=== PATIENT | female | born 1955 | race Caucasian/White ===

== ENCOUNTER → 2020-08-14 | Outpatient (CLI) | payer OTHER, SELFPAY ==
--- NOTE | 2020-08-14 16:30 | LES_PTH ---
PATIENT: MARIAM BRAMBILA LOC: [place] U#:[id number] AGE/SX: 64/F ROOM: RE08/14/[address]: Dr. Daryl Plata MD : [id number] BED: DIS: 08/14/2020 SPEC #: [id number] RECD: 08/14/20 17:44 STATUS: STEFANIE REYNALDO #: [id number] GERARD: 08/14/20 16:[address]: Daryl Plata DEPT: SURGICAL PATHOLOGY RECD BY: Thais Leroy Tissues: Skin of eyelid, NOS Procedures: Surgery Specimen Level IV HEADER OPERATION: Left lower eyelid lesion excision PRE-OP DIAGNOSIS: Left lower eyelid lesion TISSUE SUBMITTED: Left lower eyelid lesion MICROSCOPIC DIAGNOSIS Left lower eyelid lesion, excision: Squamous papilloma. [place]:anita 08/16/20 MICROSCOPIC DESCRIPTION Slides are reviewed. GROSS DESCRIPTION Received in fixative is one container labeled with the patient's name and designated left lower lid. The specimen consists of a piece of britt-white skin measuring 0.3 x 0.3 x 0.1 cm. The specimen is totally submitted in one cassette. / SJ:rg 08/15/20 TC:1 CPT: 78894
== END | disposition home or self-care (01) ==
PROVIDERS: Referring Provider Ophthalmology; Visit Provider Ophthalmology
DX: H02.9 Unspecified disorder of eyelid (principal)
CPT/HCPCS: 88305

== ENCOUNTER 2022-01-17 15:44 | Outpatient (CLI) | payer OTHER, SELFPAY ==
[2022-01-17 17:49] LABS: Absolute Lymphocyte Count 1.88 X10^3/uL (0.83-4.51); Absolute Neutrophil Count 5.2 X10^3/uL (2.0-7.7); Basophil# 0.03 X10^3/uL; Basophil% 0.4 % (0-1); Eosinophil# 0.08 X10^3/uL; Hematocrit 43.9 % (37-47); Hemoglobin 14.5 g/dL (12.0-15.0); Lymphocyte # 1.88 X10^3/ul (0.83-4.51); Lymphocyte % 23.9 % (19-41); Mean Corpuscular Hgb 30.3 pg (27.0-32.0); Mean Corpuscular Volume 91.6 fL (81-99); Mean Platelet Vol. 10.5 fl (6.2-12.0); Monocyte# 0.68 X10^3/uL; Monocyte% 8.6 % (0-10); NRBC Flagged by Analyzer 0 % (0-5); Neutrophil # 5.16 X10^3/uL (2.7-7.7); Neutrophil % 65.6 % (47-70); Platelet Count 263 K/mm3 (150-450); RBC Distribution Width CV 14.1 % (11.6-14.6); RBC Distribution Width SD 47.8 fl (35.1-43.9); Red Blood Count 4.79 M/mm3 (4.2-5.4); White Blood Count 7.9 K/mm3 (4.4-11.0)
[2022-01-17 18:06] LABS: Erythrocyte Sedimentation Rate 16 mm/hr (0-30)
[2022-01-17 18:51] LABS: Vitamin B12 331 pg/mL (211-911); Vitamin D,25 Hydroxy 14.1 ng/mL
[2022-01-17 19:07] LABS: AST(SGOT) 23 U/L (15-37); Alanine Aminotransfer ALT/SGPT 37 U/L (13-56); Albumin, Serum 3.9 g/dL (3.2-5.0); Alkaline Phosphatase 88 U/L (45-117); Anion Gap 7 (5-15); BUN 14 mg/dL (7-18); BUN/Creat Ratio 16.6 RATIO (10-20); CRP 4.91 mg/L (0.0-3.0); Calcium,Total 8.7 mg/dL (8.5-10.1); Chloride 104 mmol/L (98-107); Cholesterol 187 mg/dL (200); Creatinine, Serum 0.84 mg/dL (0.55-1.02); EST Glomerular Filtration Rate 72 mL/min (>60); Est Glom Filt Rate - Afr Amer 87 mL/min (>60); Globulin 3.9 g/dL (2.2-4.2); Glucose 109 mg/dL (74-106); High Density Lipoprotein 57 mg/dL; Potassium 3.4 mmol/L (3.5-5.1); Protein, Total 7.8 g/dL (6.4-8.2); Sodium Level 137 mmol/L (136-145); T4 Free Direct 1.01 ng/dL (0.76-1.46); Thyroid Stim Hormone (TSH) 1.47 uIU/mL (0.358-3.74); Triglycerides 70 mg/dL; Very Low Density Lipoprotein 14 mg/dL (5-40)
[2022-01-28 12:05] LABS: Anti-Thyroglobulin AB 3.6 IU/mL (0.0-0.9); Thyroglobulin RIA 8.8 ng/mL (.); Thyroid Peroxidase AB 14 IU/mL (0-34)
== END 2022-01-17 23:59 | disposition home or self-care (01) ==
LOC: MFPLAB 15:45
PROVIDERS: PCP Family Medicine; Referring Provider Family Medicine; Visit Provider Family Medicine
DX: R73.09 Other abnormal glucose (principal); E03.9 Hypothyroidism, unspecified; M79.7 Fibromyalgia; I10 Essential (primary) hypertension; R53.83 Other fatigue; E55.9 Vitamin D deficiency, unspecified
CPT/HCPCS: 80053; 80061; 82306; 82607; 83036; 84432; 84439; 84443; 85025; 85652; 86140; 86376; 86800

== ENCOUNTER 2022-01-25 11:18 | Outpatient (CLI) | payer OTHER, SELFPAY ==
--- NOTE | 2022-01-25 11:21 | US_ITS ---
STUDY: THYROID ULTRASOUND REASON FOR EXAM: Female, 66 years old. THYROMEGALY TECHNIQUE: Ultrasound evaluation of the thyroid was performed with real-time and static vail-scale imaging. COMPARISON: None. FINDINGS: RIGHT LOBE: The right lobe of the thyroid gland measures 5.6 x 1.9 cm. There is a homogeneous echotexture. There are no demonstrated solid, cystic or complex lesions. LEFT LOBE: The left lobe of the thyroid gland measures 4.2 x 2.0 cm. There is a homogeneous echotexture. There are no demonstrated solid, cystic or complex lesions. ISTHMUS: The isthmus measures 2 mm. US/Thyroid IMPRESSION: There are no acute findings on this ultrasound examination of the thyroid. Electronically Signed: Zheng Nazario MD at 21:37 EST ,
== END 2022-01-25 23:59 | disposition home or self-care (01) ==
LOC: US 11:19
PROVIDERS: PCP Family Medicine; Referring Provider Family Medicine; Visit Provider Family Medicine
DX: E01.0 Iodine-deficiency related diffuse (endemic) goiter (principal)
CPT/HCPCS: 76536

== ENCOUNTER 2022-02-12 15:39 | Outpatient (CLI) | payer OTHER, SELFPAY ==
[2022-02-12 17:41] LABS: Potassium 3.7 mmol/L (3.5-5.1)
== END 2022-02-12 23:59 | disposition home or self-care (01) ==
LOC: MFPLAB 15:42
PROVIDERS: PCP Family Medicine; Referring Provider Family Medicine; Visit Provider Family Medicine
DX: I10 Essential (primary) hypertension (principal)
CPT/HCPCS: 36415; 84132

== ENCOUNTER → 2022-05-10 | Outpatient (CLI) | payer OTHER, SELFPAY ==
[2022-05-10 17:38] LABS: Absolute Lymphocyte Count 2.01 X10^3/uL (0.83-4.51); Absolute Neutrophil Count 4.3 X10^3/uL (2.0-7.7); Basophil# 0.04 X10^3/uL; Basophil% 0.6 % (0-1); Eosinophil# 0.25 X10^3/uL; Eosinophils% 3.4 % (0-5); Hematocrit 42.3 % (37-47); Hemoglobin 13.4 g/dL (12.0-15.0); Lymphocyte # 2.01 X10^3/ul (0.83-4.51); Lymphocyte % 27.7 % (19-41); Mean Corp Hgb Conc 31.7 g/dL (32-36); Mean Corpuscular Hgb 28.9 pg (27.0-32.0); Mean Corpuscular Volume 91.2 fL (81-99); Mean Platelet Vol. 11.2 fl (6.2-12.0); Monocyte# 0.66 X10^3/uL; Monocyte% 9.1 % (0-10); NRBC Flagged by Analyzer 0 % (0-5); Neutrophil # 4.27 X10^3/uL (2.7-7.7); Neutrophil % 58.9 % (47-70); Platelet Count 222 K/mm3 (150-450); RBC Distribution Width CV 14.3 % (11.6-14.6); Red Blood Count 4.64 M/mm3 (4.2-5.4); White Blood Count 7.3 K/mm3 (4.4-11.0)
[2022-05-10 18:08] LABS: Vitamin D,25 Hydroxy 61.9 ng/mL
[2022-05-10 18:23] LABS: ALB/GLOB Ratio 1.2 RATIO (0.9-2.4); AST(SGOT) 19 U/L (15-37); Alanine Aminotransfer ALT/SGPT 30 U/L (13-56); Albumin, Serum 3.9 g/dL (3.2-5.0); Alkaline Phosphatase 81 U/L (45-117); Anion Gap 6 (5-15); BUN 15 mg/dL (7-18); BUN/Creat Ratio 21.8 RATIO (10-20); Calcium,Total 8.8 mg/dL (8.5-10.1); Chloride 106 mmol/L (98-107); Creatinine, Serum 0.69 mg/dL (0.55-1.02); EST Glomerular Filtration Rate 91 mL/min (>60); Est Glom Filt Rate - Afr Amer 110 mL/min (>60); Globulin 3.2 g/dL (2.2-4.2); Glucose 97 mg/dL (74-106); Potassium 3.5 mmol/L (3.5-5.1); Protein, Total 7.1 g/dL (6.4-8.2); Sodium Level 139 mmol/L (136-145); T4 Free Direct 1.25 ng/dL (0.76-1.46); Thyroid Stim Hormone (TSH) 0.16 uIU/mL (0.358-3.74)
[2022-05-10 18:52] LABS: Hemoglobin A1c 5.9 % (3.8-5.6)
== END | disposition home or self-care (01) ==
LOC: MFPLAB 14:14
PROVIDERS: PCP Family Medicine; Referring Provider Family Medicine; Visit Provider Family Medicine
DX: I10 Essential (primary) hypertension (principal); R73.09 Other abnormal glucose; E03.9 Hypothyroidism, unspecified; E55.9 Vitamin D deficiency, unspecified
CPT/HCPCS: 36415; 80053; 82306; 83036; 84439; 84443; 85025

== ENCOUNTER → 2022-09-23 | Outpatient (CLI) | payer OTHER, SELFPAY ==
[2022-09-23 11:13] LABS: Bacteria 0 SEEN /hpf (None Seen); Mucous, Urine 0 SEEN /hpf (<or=2+); Red Blood Cells-Urine 0 SEEN /hpf (0-5); Squamous Epithelial Cells - UA 0 SEEN /hpf (5-10); White Blood Cells 0 SEEN /hpf (0-5)
[2022-09-23 12:10] LABS: Color, Urine Yellow (Yellow); Glucose, Dipstick Normal (Normal); Ketone-Dipstick 5 mg/dl (Negative); Leukocyte Esterase-Dipstick Negative /ul (Negative); Nitrite-Dipstick Negative (Negative); Occult Blood-Urine Negative /ul (Negative); Protein-Dipstick Negative (Negative); Specific Gravity, Urine 1.025 (1.002-1.030); Urine Bilirubin Dipstick Negative (Negative); Urine Clarity Clear (Clear); Urine Urobilinogen Normal (Normal)
[2022-09-23 12:22] LABS: Vitamin D,25 Hydroxy 68.6 ng/mL
[2022-09-23 12:24] LABS: Hemoglobin A1c 5.7 % (3.8-5.6)
[2022-09-23 12:34] LABS: ALB/GLOB Ratio 1.1 RATIO (0.9-2.4); AST(SGOT) 13 U/L (15-37); Alanine Aminotransfer ALT/SGPT 21 U/L (13-56); Albumin, Serum 3.7 g/dL (3.2-5.0); Alkaline Phosphatase 80 U/L (45-117); Anion Gap 5 (5-15); BUN 14 mg/dL (7-18); BUN/Creat Ratio 18.4 RATIO (10-20); Calcium,Total 9.1 mg/dL (8.5-10.1); Chloride 104 mmol/L (98-107); Creatinine, Serum 0.76 mg/dL (0.55-1.02); EST Glomerular Filtration Rate 80 mL/min (>60); Est Glom Filt Rate - Afr Amer 97 mL/min (>60); Globulin 3.4 g/dL (2.2-4.2); Glucose 95 mg/dL (74-106); Protein, Total 7.1 g/dL (6.4-8.2); Sodium Level 138 mmol/L (136-145)
[2022-09-23 12:35] LABS: Absolute Lymphocyte Count 1.38 X10^3/uL (0.83-4.51); Absolute Neutrophil Count 3.8 X10^3/uL (2.0-7.7); Basophil# 0.03 X10^3/uL; Basophil% 0.5 % (0-1); Eosinophil# 0.08 X10^3/uL; Eosinophils% 1.4 % (0-5); Hematocrit 42.9 % (37-47); Hemoglobin 14.1 g/dL (12.0-15.0); Lymphocyte # 1.38 X10^3/ul (0.83-4.51); Lymphocyte % 23.6 % (19-41); Mean Corp Hgb Conc 32.9 g/dL (32-36); Mean Corpuscular Hgb 29.9 pg (27.0-32.0); Mean Corpuscular Volume 91.1 fL (81-99); Mean Platelet Vol. 10.3 fl (6.2-12.0); Monocyte# 0.54 X10^3/uL; Monocyte% 9.2 % (0-10); NRBC Flagged by Analyzer 0 % (0-5); Neutrophil % 65.1 % (47-70); Platelet Count 210 K/mm3 (150-450); RBC Distribution Width SD 46.9 fl (35.1-43.9); Red Blood Count 4.71 M/mm3 (4.2-5.4); White Blood Count 5.8 K/mm3 (4.4-11.0)
[2022-09-24 11:00] LABS: Free T3 2.4 pg/mL (2.18-3.98)
== END | disposition home or self-care (01) ==
LOC: MFPLAB 10:03
PROVIDERS: PCP Family Medicine; Visit Provider Family Medicine
DX: E03.9 Hypothyroidism, unspecified (principal); I10 Essential (primary) hypertension; R73.02 Impaired glucose tolerance (oral); E55.9 Vitamin D deficiency, unspecified
CPT/HCPCS: 36415; 80053; 81001; 82306; 83036; 84439; 84443; 84481; 85025

== ENCOUNTER → 2022-12-17 | Outpatient (CLI) | payer OTHER, SELFPAY ==
[2022-12-17 15:28] LABS: Absolute Lymphocyte Count 2.23 X10^3/uL (0.83-4.51); Absolute Neutrophil Count 4.5 X10^3/uL (2.0-7.7); Basophil# 0.04 X10^3/uL; Basophil% 0.5 % (0-1); Eosinophil# 0.18 X10^3/uL; Eosinophils% 2.3 % (0-5); Hematocrit 44.1 % (37-47); Hemoglobin 13.6 g/dL (12.0-15.0); Lymphocyte # 2.23 X10^3/ul (0.83-4.51); Lymphocyte % 29.1 % (19-41); Mean Corp Hgb Conc 30.8 g/dL (32-36); Mean Corpuscular Hgb 28.3 pg (27.0-32.0); Mean Corpuscular Volume 91.7 fL (81-99); Monocyte# 0.69 X10^3/uL; NRBC Flagged by Analyzer 0 % (0-5); Neutrophil # 4.49 X10^3/uL (2.7-7.7); Neutrophil % 58.7 % (47-70); Platelet Count 258 K/mm3 (150-450); RBC Distribution Width CV 14.3 % (11.6-14.6); RBC Distribution Width SD 48.7 fl (35.1-43.9); Red Blood Count 4.81 M/mm3 (4.2-5.4); White Blood Count 7.7 K/mm3 (4.4-11.0)
[2022-12-17 15:34] LABS: Hemoglobin A1c 5.1 % (3.8-5.6)
[2022-12-17 15:48] LABS: ALB/GLOB Ratio 1.1 RATIO (0.9-2.4); AST(SGOT) 26 U/L (15-37); Alanine Aminotransfer ALT/SGPT 27 U/L (13-56); Albumin, Serum 3.9 g/dL (3.2-5.0); Alkaline Phosphatase 87 U/L (45-117); Anion Gap 6 (5-15); BUN 16 mg/dL (7-18); BUN/Creat Ratio 21.1 RATIO (10-20); Calcium,Total 9.2 mg/dL (8.5-10.1); Chloride 105 mmol/L (98-107); Cholesterol 208 mg/dL (200); Creatinine, Serum 0.76 mg/dL (0.55-1.02); EST Glomerular Filtration Rate 81 mL/min (>60); Est Glom Filt Rate - Afr Amer 98 mL/min (>60); Globulin 3.7 g/dL (2.2-4.2); Glucose 90 mg/dL (74-106); High Density Lipoprotein 72 mg/dL; Potassium 3.6 mmol/L (3.5-5.1); Protein, Total 7.6 g/dL (6.4-8.2); Sodium Level 139 mmol/L (136-145); T4 Free Direct 1.13 ng/dL (0.76-1.46); Thyroid Stim Hormone (TSH) 0.68 uIU/mL (0.358-3.74); Triglycerides 52 mg/dL; Very Low Density Lipoprotein 10 mg/dL (5-40)
[2022-12-17 16:00] LABS: Vitamin D,25 Hydroxy 72.2 ng/mL
== END | disposition home or self-care (01) ==
PROVIDERS: PCP Family Medicine; Referring Provider Family Medicine; Visit Provider Family Medicine
DX: I10 Essential (primary) hypertension (principal); R73.02 Impaired glucose tolerance (oral); E03.9 Hypothyroidism, unspecified; E55.9 Vitamin D deficiency, unspecified
CPT/HCPCS: 36415; 80053; 80061; 82306; 83036; 84439; 84443; 85025

== ENCOUNTER → 2023-01-01 | Outpatient (CLI) | payer OTHER, SELFPAY ==
[2023-01-01 09:22] LABS: Erythrocyte Sedimentation Rate 7 mm/hr (0-30)
[2023-01-01 09:25] LABS: Absolute Lymphocyte Count 1.85 X10^3/uL (0.83-4.51); Absolute Neutrophil Count 3.8 X10^3/uL (2.0-7.7); Basophil# 0.06 X10^3/uL; Basophil% 0.9 % (0-1); Eosinophil# 0.25 X10^3/uL; Eosinophils% 3.8 % (0-5); Hematocrit 44.6 % (37-47); Hemoglobin 13.6 g/dL (12.0-15.0); Lymphocyte # 1.85 X10^3/ul (0.83-4.51); Lymphocyte % 28.2 % (19-41); Mean Corp Hgb Conc 30.5 g/dL (32-36); Mean Corpuscular Hgb 27.9 pg (27.0-32.0); Mean Corpuscular Volume 91.4 fL (81-99); Mean Platelet Vol. 10.1 fl (6.2-12.0); Monocyte% 9.1 % (0-10); NRBC Flagged by Analyzer 0 % (0-5); Neutrophil # 3.78 X10^3/uL (2.7-7.7); Neutrophil % 57.5 % (47-70); Platelet Count 254 K/mm3 (150-450); RBC Distribution Width CV 14.5 % (11.6-14.6); RBC Distribution Width SD 48.7 fl (35.1-43.9); Red Blood Count 4.88 M/mm3 (4.2-5.4); White Blood Count 6.6 K/mm3 (4.4-11.0)
[2023-01-01 09:53] LABS: ALB/GLOB Ratio 1.1 RATIO (0.9-2.4); AST(SGOT) 15 U/L (15-37); Alanine Aminotransfer ALT/SGPT 23 U/L (13-56); Albumin, Serum 3.9 g/dL (3.2-5.0); Alkaline Phosphatase 89 U/L (45-117); Anion Gap 5 (5-15); BUN 15 mg/dL (7-18); BUN/Creat Ratio 20.1 RATIO (10-20); CRP < 2.90 mg/L (0.0-3.0); Calcium,Total 9.2 mg/dL (8.5-10.1); Chloride 105 mmol/L (98-107); Creatinine, Serum 0.75 mg/dL (0.55-1.02); EST Glomerular Filtration Rate 82 mL/min (>60); Est Glom Filt Rate - Afr Amer 99 mL/min (>60); Globulin 3.6 g/dL (2.2-4.2); Glucose 121 mg/dL (74-106); LDH 226 U/L (84-246); Potassium 4.5 mmol/L (3.5-5.1); Protein, Total 7.5 g/dL (6.4-8.2); Sodium Level 140 mmol/L (136-145)
[2023-01-02 14:09] LABS: Endomysial Antibody IgA Negative (Negative)
[2023-01-02 17:24] LABS: Immunoglobulin A 133 mg/dL (87-352); t-Transglutaminase IgA <2 U/mL (0-3)
[2023-01-07 15:08] LABS: Anti-Centromere B Ab <0.2 AI (0.0-0.9); Anti-Chromatin <0.2 AI (0.0-0.9); Anti-Jo <0.2 AI (0.0-0.9); Anti-Scleroderma-70 AB 4.4 AI (0.0-0.9); Beef <0.10 kU/L (Class 0); Corn <0.10 kU/L (Class 0); Egg, Whole <0.10 kU/L (Class 0); Milk (Cow) <0.10 kU/L (Class 0); Peanut <0.10 kU/L (Class 0); Pork <0.10 kU/L (Class 0); RNP Ab <0.2 AI (0.0-0.9); SJOGREN'S Anti-SS-A test < 0.2 AI (0.0-0.9); SJOGREN'S Anti-SS-B test < 0.2 AI (0.0-0.9); Smith Ab <0.2 AI (0.0-0.9); Soybean <0.10 kU/L (Class 0); Wheat <0.10 kU/L (Class 0)
[2023-01-07 18:25] LABS: Anti-dsDNA Ab 3 IU/mL (0-9); Chocolate <0.10 kU/L (Class 0)
[2023-01-08 15:08] LABS: Albumin 3.8 g/dL (2.9-4.4); Alpha-1-Globulins 0.3 g/dL (0.0-0.4); Alpha-2-Globulins 0.8 g/dL (0.4-1.0); Cytoplasmic Ab (C-ANCA) <1:20 titer (Neg:<1:20); Gamma Globulin 1.1 g/dL (0.4-1.8); Immunoglobulin A 145 mg/dL (87-352); Immunoglobulin E 17 IU/mL (6-495); Immunoglobulin G 1132 mg/dL (586-1602); Immunoglobulin M 155 mg/dL (26-217); PROEL- TOTAL PROTEIN 6.9 g/dL (6.0-8.5)
[2023-01-10 19:05] LABS: Perinuclear Ab (P-ANCA) <1:20 titer (Neg:<1:20)
== END | disposition home or self-care (01) ==
PROVIDERS: PCP Family Medicine; Referring Provider Internal Medicine Gastroenterology; Visit Provider Internal Medicine Gastroenterology
DX: K52.9 Noninfective gastroenteritis and colitis, unspecified (principal)
CPT/HCPCS: 36415; 80053; 82784; 82785; 83516; 83615; 84165; 85025; 85652; 86003; 86005; 86140; 86225; 86235; 86255; 86256; 86334

== ENCOUNTER → 2023-01-09 | Outpatient (CLI) | payer OTHER, SELFPAY ==
[2023-01-13 19:27] LABS: Calprotectin, Stool <16 ug/g (0-120)
[2023-01-14 19:52] LABS: Pancreatic Elastase, Fecal 149 (>200)
== END | disposition home or self-care (01) ==
LOC: LABSPEC 13:41
PROVIDERS: PCP Family Medicine; Referring Provider Internal Medicine Gastroenterology; Visit Provider Internal Medicine Gastroenterology
DX: K52.9 Noninfective gastroenteritis and colitis, unspecified (principal)
CPT/HCPCS: 82653; 83630; 83993

== ENCOUNTER → 2023-01-27 | Outpatient (CLI) | payer OTHER, SELFPAY ==
[2023-01-27 13:25] LABS: ALB/GLOB Ratio 1.1 RATIO (0.9-2.4); AST(SGOT) 16 U/L (15-37); Alanine Aminotransfer ALT/SGPT 21 U/L (13-56); Albumin, Serum 3.8 g/dL (3.2-5.0); Alkaline Phosphatase 94 U/L (45-117); Anion Gap 7 (5-15); BUN 14 mg/dL (7-18); BUN/Creat Ratio 18.5 RATIO (10-20); Calcium,Total 9.3 mg/dL (8.5-10.1); Chloride 103 mmol/L (98-107); Creatinine, Serum 0.76 mg/dL (0.55-1.02); EST Glomerular Filtration Rate 81 mL/min (>60); Est Glom Filt Rate - Afr Amer 98 mL/min (>60); Globulin 3.6 g/dL (2.2-4.2); Glucose 113 mg/dL (74-106); Potassium 3.6 mmol/L (3.5-5.1); Protein, Total 7.4 g/dL (6.4-8.2); Sodium Level 138 mmol/L (136-145)
== END | disposition home or self-care (01) ==
LOC: MFPLAB 10:27
PROVIDERS: Nurse Practitioner Family; PCP Family Medicine; Visit Provider Family Medicine
DX: I10 Essential (primary) hypertension (principal)
CPT/HCPCS: 36415; 80053

== ENCOUNTER → 2023-06-16 | Outpatient (CLI) | payer OTHER, SELFPAY ==
[2023-06-16 12:56] LABS: Absolute Lymphocyte Count 1.57 X10^3/uL (0.83-4.51); Absolute Neutrophil Count 3.9 X10^3/uL (2.0-7.7); Basophil# 0.05 X10^3/uL; Basophil% 0.8 % (0-1); Eosinophil# 0.27 X10^3/uL; Eosinophils% 4.3 % (0-5); Hematocrit 43.8 % (37-47); Hemoglobin 13.8 g/dL (12.0-15.0); Lymphocyte # 1.57 X10^3/ul (0.83-4.51); Lymphocyte % 25.2 % (19-41); Mean Corp Hgb Conc 31.5 g/dL (32-36); Monocyte# 0.45 X10^3/uL; Monocyte% 7.2 % (0-10); NRBC Flagged by Analyzer 0 % (0-5); Neutrophil # 3.87 X10^3/uL (2.7-7.7); Neutrophil % 62.2 % (47-70); Platelet Count 238 K/mm3 (150-450); RBC Distribution Width CV 14.6 % (11.6-14.6); RBC Distribution Width SD 47.8 fl (35.1-43.9); Red Blood Count 4.92 M/mm3 (4.2-5.4); White Blood Count 6.2 K/mm3 (4.4-11.0)
[2023-06-16 13:37] LABS: Hemoglobin A1c 5.7 % (3.8-5.6)
[2023-06-16 13:49] LABS: ALB/GLOB Ratio 0.9 RATIO (0.9-2.4); AST(SGOT) 16 U/L (15-37); Alanine Aminotransfer ALT/SGPT 19 U/L (13-56); Albumin, Serum 3.5 g/dL (3.2-5.0); Alkaline Phosphatase 106 U/L (45-117); Anion Gap 5 (5-15); BUN 13 mg/dL (7-18); BUN/Creat Ratio 20.1 RATIO (10-20); Calcium,Total 8.7 mg/dL (8.5-10.1); Chloride 107 mmol/L (98-107); Creatinine, Serum 0.65 mg/dL (0.55-1.02); EST Glomerular Filtration Rate 97 mL/min (>60); Est Glom Filt Rate - Afr Amer 117 mL/min (>60); Globulin 3.8 g/dL (2.2-4.2); Glucose 101 mg/dL (74-106); Potassium 3.9 mmol/L (3.5-5.1); Protein, Total 7.3 g/dL (6.4-8.2); Sodium Level 138 mmol/L (136-145); T4 Free Direct 0.98 ng/dL (0.76-1.46); Thyroid Stim Hormone (TSH) 1.02 uIU/mL (0.358-3.74)
== END | disposition home or self-care (01) ==
LOC: MFPLAB 11:01
PROVIDERS: PCP Family Medicine; Visit Provider Family Medicine
DX: I10 Essential (primary) hypertension (principal); R73.02 Impaired glucose tolerance (oral); E03.9 Hypothyroidism, unspecified; E55.9 Vitamin D deficiency, unspecified
CPT/HCPCS: 36415; 80053; 82306; 83036; 84439; 84443; 85025

== ENCOUNTER → 2023-12-23 | Outpatient (CLI) | payer OTHER, SELFPAY ==
[2023-12-23 12:13] LABS: Absolute Lymphocyte Count 1.59 X10^3/uL (0.83-4.51); Absolute Neutrophil Count 3.4 X10^3/uL (2.0-7.7); Basophil# 0.04 X10^3/uL; Basophil% 0.7 % (0-1); Eosinophil# 0.26 X10^3/uL; Eosinophils% 4.4 % (0-5); Hematocrit 43.8 % (37-47); Hemoglobin 13.7 g/dL (12.0-15.0); Lymphocyte # 1.59 X10^3/ul (0.83-4.51); Lymphocyte % 26.7 % (19-41); Mean Corp Hgb Conc 31.3 g/dL (32-36); Mean Corpuscular Hgb 27.8 pg (27.0-32.0); Mean Corpuscular Volume 88.8 fL (81-99); Mean Platelet Vol. 10.1 fl (6.2-12.0); Monocyte% 10.1 % (0-10); NRBC Flagged by Analyzer 0 % (0-5); Neutrophil # 3.43 X10^3/uL (2.7-7.7); Neutrophil % 57.6 % (47-70); Platelet Count 252 K/mm3 (150-450); RBC Distribution Width CV 14.6 % (11.6-14.6); RBC Distribution Width SD 46.2 fl (35.1-43.9); Red Blood Count 4.93 M/mm3 (4.2-5.4)
[2023-12-23 12:45] LABS: Vitamin D,25 Hydroxy 35.4 ng/mL
[2023-12-23 12:49] LABS: AST(SGOT) 16 U/L (15-37); Alanine Aminotransfer ALT/SGPT 25 U/L (13-56); Albumin, Serum 3.8 g/dL (3.2-5.0); Alkaline Phosphatase 104 U/L (45-117); Anion Gap 3 (5-15); BUN 11 mg/dL (7-18); BUN/Creat Ratio 15.4 RATIO (10-20); Chloride 105 mmol/L (98-107); Cholesterol 191 mg/dL (200); Creatinine, Serum 0.71 mg/dL (0.55-1.02); EST Glomerular Filtration Rate 86 mL/min (>60); Est Glom Filt Rate - Afr Amer 104 mL/min (>60); Globulin 3.8 g/dL (2.2-4.2); Glucose 121 mg/dL (74-106); High Density Lipoprotein 60 mg/dL; Potassium 3.7 mmol/L (3.5-5.1); Protein, Total 7.6 g/dL (6.4-8.2); Sodium Level 136 mmol/L (136-145); T4 Free Direct 1.07 ng/dL (0.76-1.46); Thyroid Stim Hormone (TSH) 0.96 uIU/mL (0.358-3.74); Triglycerides 73 mg/dL; Very Low Density Lipoprotein 15 mg/dL (5-40)
[2023-12-23 13:22] LABS: Hemoglobin A1c 6.4 % (3.8-5.6)
== END | disposition home or self-care (01) ==
PROVIDERS: PCP Family Medicine; Referring Provider Family Medicine; Visit Provider Family Medicine
DX: E03.9 Hypothyroidism, unspecified (principal); R73.02 Impaired glucose tolerance (oral); I10 Essential (primary) hypertension; E55.9 Vitamin D deficiency, unspecified
CPT/HCPCS: 36415; 80053; 80061; 82306; 83036; 84439; 84443; 85025

== ENCOUNTER 2024-05-31 17:18 | Emergency (ER) | payer OTHER, SELFPAY ==
[2024-05-31 17:19] VITALS: BP 178/106; PULSE 81; RESP 16; TEMP 36.4; O2SAT 95; BMI 39.4
[2024-05-31 17:21] VITALS: BP 178/106; PULSE 93; RESP 15; TEMP 36.4; O2SAT 97
--- NOTE | 2024-05-31 17:54 | ED.VIS.GI ---
HPI HPI - GI History of Present Illness Chief Complaint: GI Bleed Informant: patient Abdominal Pain/Flank Pain Onset: Yesterday Context: Sudden Onset Timing: Waxes and wanes Quality: Aching and Cramping Location: LLQ Worsened by: Nothing Relieved by: - (Heating pad) Nausea/Vomiting/Emesis GI Symptom: Positive for Nausea; Negative for Vomiting Diarrhea/Melena/Hematochezia GI Symptom: Positive for Hematochezia Stool Quality: Positive for BRB per rectum Associated Symptoms Associated Symptoms: Negative for Dysuria, Frequency or Hematuria Narrative Narrative: Patient presents with rectal bleeding and left lower quadrant abdominal pain that began yesterday. Patient states it began rather suddenly. Patient states it has been waxing and waning. Patient describes the pain as aching and cramping. Patient states it is mainly over the left lower abdomen. Patient states it did get better with a heating pad. Patient states nothing makes it worse. Patient admits to some nausea but denies any vomiting. Patient states her bowel movements have been red blood with some clots. Patient denies any dysuria, frequency, or hematuria. Prior similar symptoms: Yes (With prior episode of diverticulitis) [facility] Medical History (Updated 05/31/24 @ 21:[address] Aaron Coyle, DO) Diverticulitis Positive P-ANCA titer Home Medications ?Medication ?Instructions ?Recorded ?Last Taken ?Type cholecalciferol (vitamin D3) 10 10 mcg PO DAILY 01/17/23 Unknown History mcg (400 unit) tablet duloxetine 30 mg capsule,delayed 30 mg PO DAILY 01/17/23 Unknown History release hydrochlorothiazide 25 mg tablet 25 mg PO DAILY 01/17/23 Unknown History levothyroxine 50 mcg capsule 50 mcg PO DAILY 01/17/23 Unknown History poscpl-[id number] See Rx Instructions PO .COMPLEX 01/17/23 Unknown Rx 36,000-114,000-180,000 unit #320 caps capsule,delay rel (Creon) magnesium 200 mg tablet 200 mg PO DAILY 01/17/23 Unknown History ciprofloxacin HCl 500 mg tablet 500 mg PO BID #20 TABLETS 05/31/24 Unknown Rx metronidazole 500 mg tablet 500 mg PO Q6H #40 tabs 05/31/24 Unknown Rx Allergy/AdvReac Type Severity Reaction Status Date / Time Corticosteroids Allergy Mild UNABLE TO Verified 05/31/24 17:22 (Glucocorticoids) (steroids) SLEEP Surgical History (Updated 05/31/24 @ 18:[address] Aaron Coyle DO) Hx of total knee replacement Hx of hysterectomy Hx of cholecystectomy Social History Smoking Status: Never smoker ROS ROS ED Constitutional Constitutional ED: Denies chills or fever(s) Eyes Eyes: Denies blurry vision or change in vision ENT ENT ED: Denies rhinorrhea or sore throat Cardiovascular Cardiovascular: Denies chest pain or palpitations Respiratory/Chest Respiratory/Chest: Denies cough or dyspnea Gastrointestinal Gastrointestinal: Reports abdominal pain; Denies nausea or vomiting Genitourinary Genitourinary ED: Denies dysuria or hematuria Musculoskeletal Musculoskeletal: Denies back pain or neck pain Integumentary Denies abscess or rash Neurologic Neurologic: Reports headache(s); Denies weakness Allergic/Immunologic Allergic/Immunologic ED: Denies mouth swelling or urticaria EXAM Physical Exam Const Vital Signs: 05/31/24 17:19 05/31/24 17:21 05/31/24 18:13 Temperature 97.5 F L 97.5 F L Temperature Source Temporal Temporal Pulse Rate 81 93 75 Respiratory Rate 16 15 16 Blood Pressure 178/106 H 178/106 H 156/84 H Blood Pressure Mean 130 130 108 Pulse Ox 95 97 98 Oxygen Delivery Method Room Air Room Air Room Air 05/31/24 20:00 Temperature Temperature Source Pulse Rate 81 Respiratory Rate 16 Blood Pressure 153/83 H Blood Pressure Mean 106 Pulse Ox 98 Oxygen Delivery Method Room Air Positive well nourished and well developed General Appearance ED: well developed and NAD HEENT Reports moist mucous membranes Neck supple and no JVD Resp normal respiratory effort and clear to auscultation bilaterally Cardio regular rate and regular rhythm GI non-distended Palpation: soft and tender LLQ; Negative for guarding or rebound tenderness present Extremity normal to inspection General Extremety ED: Negative for edema or tenderness General Extremity: Negative for edema Neuro oriented x3, CN's II-XII intact bilaterally and no sensory deficits noted Sensorium / Orientation: alert Motor Exam: strength 5/5 throughout Psych mental status grossly normal MDM MDM MDM Narrative Medical decision making narrative: Differential diagnosis includes diverticulitis, colitis, ureteral calculus, urinary tract infection, pyelonephritis, gastroenteritis, and perforated bowel. CT scan of the abdomen pelvis will be obtained to assess for diverticulitis, ureteral calculus, and bowel perforation. CBC will be obtained to assess for leukocytosis and anemia. Basic metabolic profile will be obtained to assess for electrolyte abnormality and renal function. Urinalysis will be obtained to assess for urinary tract infection and hematuria. Lab Data Attestation: I reviewed the patient's lab results. Lab results narrative: CBC was reviewed. There is a mild leukocytosis of 17.7. Hemoglobin was slightly elevated at 15.4 and hematocrit was 48.1. Platelets were normal. Basic metabolic profile was reviewed. Glucose was mildly elevated at 135. The remainder is within normal limits. Urinalysis was reviewed. There is no evidence of urinary tract infection or hematuria. Labs: Laboratory Results - last 24 hr 05/31/24 17:32 WBC 17.7 H RBC 5.38 Hgb 15.4 H Hct 48.1 H MCV 89.4 MCH 28.6 MCHC 32.0 RDW Std Deviation 49.6 H RDW Coeff of [place] 15.0 H Plt Count 263 MPV 9.9 Immature Gran % (Auto) 0.600 Neut % (Auto) 74.9 H Lymph % (Auto) 15.1 L Price % (Auto) 8.6 Eos % (Auto) 0.3 Baso % (Auto) 0.5 Absolute Neuts (auto) 13.3 H Absolute Lymphs (auto) 2.67 Nucleated RBC % 0 Differential Comment SCANNED Sodium 137 Potassium 3.6 Chloride 102 Carbon Dioxide 30.0 Anion Gap 5 BUN 11 Creatinine 0.87 Estim Creat Clear Calc 71.82 Est GFR (MDRD) Af Amer 83 Est GFR (MDRD) Non-Af 68 BUN/Creatinine Ratio 12.6 Glucose 135 H Calcium 9.6 Urine Color Yellow Urine Clarity Clear Urine pH 6.5 Ur Specific [place] 1.010 Urine Protein 15 H Urine Glucose (UA) Normal Urine Ketones Negative Urine Occult Blood Negative Urine Nitrite Negative Urine Bilirubin Negative Urine Urobilinogen 1 H Ur Leukocyte Esterase 25 H Urine RBC 0 SEEN Urine WBC 0-5 SEEN Ur Squamous Epith Cells 0-5 SEEN Urine Bacteria 0 SEEN Urine Mucus 0 SEEN Radiography Diagnostic Testing: Clinical Impression(s) from Imaging Studies Abdomen/Pelvis CT 05/31/24 17:58 IMPRESSION: Findings consistent with nonspecific colitis with most severe involvement of the descending colon. Electronically Signed: Eugene Suarez MD at 20:08 EDT Reading Location ID and State: [address] [place] [address] Tel , Service support , CT scan of the abdomen pelvis was obtained. There are findings consistent with colitis with the most severe involvement of the descending colon. There is no free air or free fluid. There is no evidence of perforation or abscess. This was interpreted by the radiologist was also independently reviewed by myself. Treatment and Re-Evaluation :: Patient was given IV fluids, morphine, and Zofran. Patient was feeling better on reevaluation. Patient was given a dose of Cipro and Flagyl here. Patient was advised of her findings. Patient was given prescriptions for Cipro and Flagyl. Patient was instructed to start with a bland diet and advance as tolerated. Patient was instructed to follow-up with her primary care physician in 5 to 7 days. Patient was instructed to avoid alcohol while taking Flagyl. Patient understood and was agreeable with the plan. All questions were answered. Discharge Plan Triage Chief Complaint: GI Bleed ED Provider: Aaron Coyle Dx/Rx/DC Orders Clinical Impression: Colitis, Diverticulitis Instructions: ED Diverticulitis Prescriptions: New metronidazole 500 mg tablet 500 mg PO Q6H Qty: 40 0RF ciprofloxacin HCl 500 mg tablet 500 mg PO BID Qty: 20 0RF No Action duloxetine 30 mg capsule,delayed release(DR/EC) 30 mg PO DAILY levothyroxine 50 mcg capsule 50 mcg PO DAILY hydrochlorothiazide 25 mg tablet 25 mg PO DAILY cholecalciferol (vitamin D3) 10 mcg (400 unit) tablet 10 mcg PO DAILY magnesium 200 mg tablet 200 mg PO DAILY Creon 36,000-114,000- 180,000 unit capsule,delayed release(DR/EC) See Rx Instructions PO .COMPLEX Qty: 320 0RF Rx Instructions: take 1-2 with snacks and 2-3 with meals Primary Care Provider: Alessandro Mathur Referrals: Alessandro Mathur MD [Primary Care Provider] - 5-7 Days Print Language: Nepali Disposition Disposition: Home, Self Care
--- NOTE | 2024-05-31 17:58 | CT_ITS ---
STUDY: CT ABDOMEN AND PELVIS WITH CONTRAST REASON FOR EXAM: Female, 68 years old. Abdominal pain -- IV PO Contrast RADIATION DOSAGE (If Supplied By Facility): CTDIvol = ( 18.6 ) mGy, DLP = ( 1284.26 ) mGycm TECHNIQUE: Transaxial images were obtained from the dome of the diaphragm to the symphysis pubis without oral contrast. IV 100mL Isovue-370 was administered. Sagittal and coronal images were reconstructed. Individualized dose optimization techniques were used for this CT. COMPARISON: None. FINDINGS: The visualized lung bases are unremarkable. The visualized portions of the heart are within normal limits. Normal liver. The gallbladder has been removed surgically. Normal spleen. Normal pancreas. Normal bilateral adrenal glands. Normal right kidney. Normal left kidney. Normal visualized stomach. Normal small intestine. There is a diffusely ahaustral appearance to the descending colon with stranding in the fat at the mid to distal level of the descending colon consistent with acute colitis.. Minor diverticular changes of the sigmoid colon without evidence for nonspecific acute diverticulitis There is no evidence for acute appendicitis. Minor atherosclerotic change of the aorta without evidence for aneurysm Normal inferior vena cava. Normal retroperitoneum. Normal urinary bladder. Uterus not visualized status post hysterectomy Normal abdominal wall. Lumbar spine demonstrates mild spondylosis. CT/Abdomen/Pelvis WITH Contrast IMPRESSION: Findings consistent with nonspecific colitis with most severe involvement of the descending colon. Electronically Signed: Eugene Suarez MD at 20:08 EDT ,
[2024-05-31] MEDS: Ondansetron 4 MG/2 ML Vial IV (18:11)
[2024-05-31] MEDS: 0.9% Normal Saline (1000mL) 1,000 ML 999 ML IV (18:11)
[2024-05-31] MEDS: Morphine 4 MG/ML Syringe IV (18:11)
[2024-05-31 18:13] VITALS: BP 156/84; PULSE 75; RESP 16; O2SAT 98
[2024-05-31 18:15] LABS: Bacteria 0 SEEN /hpf (None Seen); Mucous, Urine 0 SEEN /hpf (<or=2+); Red Blood Cells-Urine 0 SEEN /hpf (0-5)
[2024-05-31 18:27] LABS: Absolute Lymphocyte Count 2.67 X10^3/uL (0.83-4.51); Absolute Neutrophil Count 13.3 X10^3/uL (2.0-7.7); Basophil# 0.08 X10^3/uL; Basophil% 0.5 % (0-1); Eosinophil# 0.06 X10^3/uL; Eosinophils% 0.3 % (0-5); Hematocrit 48.1 % (37-47); Hemoglobin 15.4 g/dL (12.0-15.0); Lymphocyte # 2.67 X10^3/ul (0.83-4.51); Lymphocyte % 15.1 % (19-41); Mean Corpuscular Hgb 28.6 pg (27.0-32.0); Mean Corpuscular Volume 89.4 fL (81-99); Mean Platelet Vol. 9.9 fl (6.2-12.0); Monocyte# 1.53 X10^3/uL; Monocyte% 8.6 % (0-10); NRBC Flagged by Analyzer 0 % (0-5); Neutrophil # 13.26 X10^3/uL (2.7-7.7); Neutrophil % 74.9 % (47-70); POSITIVE DIFFERENTIAL YES; Platelet Count 263 K/mm3 (150-450); RBC Distribution Width SD 49.6 fl (35.1-43.9); Red Blood Count 5.38 M/mm3 (4.2-5.4); White Blood Count 17.7 K/mm3 (4.4-11.0)
[2024-05-31 18:28] LABS: Glucose, Dipstick Normal (Normal); Ketone-Dipstick Negative (Negative); Leukocyte Esterase-Dipstick 25 /ul (Negative); Nitrite-Dipstick Negative (Negative); Occult Blood-Urine Negative /ul (Negative); Protein-Dipstick 15 mg/dl (Negative); Urine Bilirubin Dipstick Negative (Negative); Urine Urobilinogen 1 mg/dl (Normal); Urine pH 6.5 (5.0 - 8.0)
[2024-05-31 18:30] LABS: Color, Urine Yellow (Yellow); Differential Indicated SCAN CRITERIA MET; Urine Clarity Clear (Clear)
[2024-05-31 18:36] LABS: Anion Gap 5 (5-15); BUN 11 mg/dL (7-18); BUN/Creat Ratio 12.6 RATIO (10-20); Calcium,Total 9.6 mg/dL (8.5-10.1); Chloride 102 mmol/L (98-107); Creatinine, Serum 0.87 mg/dL (0.55-1.02); EST Glomerular Filtration Rate 68 mL/min (>60); Est Glom Filt Rate - Afr Amer 83 mL/min (>60); Estimated Creatinine Clearance 71.82 ml/min; Glucose 135 mg/dL (74-106); Potassium 3.6 mmol/L (3.5-5.1); Sodium Level 137 mmol/L (136-145)
[2024-05-31 18:40] LABS: Squamous Epithelial Cells - UA 0-5 SEEN /hpf (5-10); White Blood Cells 0-5 SEEN /hpf (0-5)
[2024-05-31 18:49] LABS: Differential Comment SCANNED
[2024-05-31 20:00] VITALS: BP 153/83; PULSE 81; RESP 16; O2SAT 98
[2024-05-31] MEDS: metroNIDAZOLE 500 MG Tablet PO (21:06)
[2024-05-31] MEDS: Ciprofloxacin 500 MG Tablet PO (21:06)
[2024-05-31 21:07] VITALS: BP 122/79; PULSE 72; RESP 16; TEMP 36.9; O2SAT 100
[2024-06-01 13:40] LABS: Pathologist Review Reviewed
== END 2024-05-31 21:13 | disposition home or self-care (01) ==
PROVIDERS: Emergency Provider Emergency Medicine; PCP Family Medicine; Visit Provider Emergency Medicine
DX: K57.33 Diverticulitis of large intestine without perforation or abscess with bleeding (principal); Z79.899 Other long term (current) drug therapy
CPT/HCPCS: 74177; 80048; 81001; 85025; 96361; 96374; 96375; 99284; J7030; Q9967; A4216; J2405

== ENCOUNTER → 2024-07-15 | Outpatient (CLI) | payer OTHER, SELFPAY ==
--- NOTE | 2024-07-15 12:16 | BI_ITS ---
MAMMOGRAPHY - BILATERAL SCREENING REASON FOR EXAM: Female, 68 years old. Routine annual screening examination. PERTINENT HISTORY: Non-contributory. TECHNIQUE: Digital bilateral breast malick (3D mammographic acquisition) in the CC and MLO projections. 2-D mediolateral oblique (MLO) and craniocaudad (CC) views of both breasts were obtained. CAD: Full Field Digital Mammography with Computer Added Detection was performed. COMPARISON: No comparison mammograms available at this time. If any prior films become available, an addendum to this report can be generated. FINDINGS: Breast Composition: There are scattered areas of fibroglandular density. There are no dominant masses or suspicious calcifications. No other significant abnormalities are identified. BI/SCRN MAMM (CAD)W/MALICK BILAT IMPRESSION: Negative screening mammogram. Yearly followup mammogram recommended. (A) ASSESSMENT CATEGORY: BIRADS Category 1: Negative. A letter regarding these results will be sent to the patient by the facility within 30 days. Approximately 10% of breast cancers are not detected by mammography. A normal mammogram should not delay biopsy of a clinically suspicious abnormality. [id number] Electronically Signed: Darshan Saravia MD at 14:02 EDT ,
--- NOTE | 2024-07-15 12:21 | BD_ITS ---
STUDY: DUAL ENERGY X-RAY ABSORPTIOMETRY / DXA REASON FOR EXAM: Female, 68 years old. [id number] TECHNIQUE: Bone Mineral Density (BMD) measurements of lumbar spine and bilateral hips were obtained. COMPARISON: None. FINDINGS: Lumbar Spine (L1-L4): g/cm2 (1.065) / T-score (0.2) / Z-score (2.3) Findings are suggestive of normal bone density with a fracture risk. Left Femur Total: g/cm2 (0.976) / T-score (0.3) / Z-score (1.8) Left Femoral Neck: g/cm2 (0.624) / T-score (-2.0) / Z-score (-0.2) Right Femur Total: g/cm2 (0.969) / T-score (0.3) / Z-score (1.7) Right Femoral Neck: g/cm2 (0.753) / T-score (-0.9) / Z-score (0.9) BD/Dexa Bone Density Study IMPRESSION: The patient is considered osteopenic as outlined below according to World Jacob Organization (WHO) criteria with a moderate fracture risk. Reference Information: The T-score is the number of standard deviations above or below the standard which is normal for young adults at their peak bone mineral density. The World Health Organization (WHO) interprets the T-scores as follows: Above -1 Normal bone density Between -1 and -2.5 Osteopenia Equal to / or below -2.5 Osteoporosis As a practical clinical guideline, osteopenia may be graded as follows: Mild -1 through -1.5 Moderate -1.6 through -2.0 Severe -2.1 through -2.4 The Z-score is the number of standard deviations above or below age-matched controls. A Z-score of less than -1.5 would be considered abnormal. References: 1. NIH Osteoporosis and Related Bone Diseases www osteo.org 2. International Society for Clinical Densitometry www iscd.org 3. National Osteoporosis Foundation www nof.org Electronically Signed: Darshan Saravia MD at 14:51 EDT ,
== END | disposition home or self-care (01) ==
LOC: OPBI 12:14
PROVIDERS: PCP Family Medicine; Referring Provider Family Medicine; Visit Provider Family Medicine
DX: Z12.31 Encounter for screening mammogram for malignant neoplasm of breast (principal); Z78.0 Asymptomatic menopausal state
CPT/HCPCS: 77063; 77067; 77080

== ENCOUNTER → 2024-09-15 | Outpatient (CLI) | payer OTHER, SELFPAY ==
--- OUTSIDE RECORDS SUMMARY | 2024-09-15 10:45 | XMS RPT_ITS | CCD ---
Author Organization [facility] [place] [facility] Care Team Providers Care [employer] Name Role Phone NATACHA BUTLER Unavailable Unavailable NATACHA BUTLER Unavailable Unavailable NATACHA BUTLER Unavailable Unavailable Darcy Vargas Primary Care Provider [phone] INOCENCIO BARNEY Attending Unavailable INOCENCIO BARNEY Admitting Unavailable SCHINNER, BARBRA E Consulting Unavailable INOCENCIO BARNEY Primary Care Unavailable PROVIDER, UNKNOWN Consulting Unavailable EMILY REYES Primary Care Unavailable EMILY REYES Attending Unavailable SCHINNER, BARBRA E Consulting Unavailable EMILY REYES Admitting Unavailable PROVIDER, UNKNOWN Consulting Unavailable LENNIE REYES DR Primary Care Unavailable SCHINNER, BARBRA E Consulting Unavailable LENNIE REYES DR Attending Unavailable LENNIE REYES DR Admitting Unavailable PROVIDER, UNKNOWN Consulting Unavailable LENNIE REYES DR Admitting Unavailable SCHINNER, BARBRA E Consulting Unavailable LENNIE REYES DR Attending Unavailable LENNIE REYES DR Primary Care Unavailable PROVIDER, UNKNOWN Consulting Unavailable LENNIE REYES DR Primary Care Unavailable SCHINNER, BARBRA E Consulting Unavailable LENNIE REYES DR Attending Unavailable LENNIE REYES DR Admitting Unavailable PROVIDER, UNKNOWN Consulting Unavailable LENNIE REYES DR Admitting Unavailable SCHINNER, BARBRA E Consulting Unavailable LENNIE REYES DR Primary Care Unavailable LENNIE REYES DR Attending Unavailable PROVIDER, UNKNOWN Consulting Unavailable LENNIE REYES DR Admitting Unavailable SCHINNER, BARBRA E Consulting Unavailable LENNIE REYES DR Primary Care Unavailable LENNIE REYES DR Attending Unavailable PROVIDER, UNKNOWN Consulting Unavailable LENNIE REYES DR Primary Care Unavailable LENNIE REYES DR Attending Unavailable LENNIE REYES DR Admitting Unavailable SCHINNER, BARBRA E Consulting Unavailable PROVIDER, UNKNOWN Consulting Unavailable LENNIE REYES DR Admitting Unavailable SCHINNER, BARBRA E Consulting Unavailable LENNIE REYES DR Primary Care Unavailable LENNIE REYES DR Attending Unavailable PROVIDER, UNKNOWN Consulting Unavailable LENNIE REYES DR Primary Care Unavailable INOCENCIO BARNEY PAC Referring Unavailable SCHINNER, BARBRA E Consulting Unavailable LENNIE REYES DR Attending Unavailable LENNIE REYES DR Admitting Unavailable PROVIDER, UNKNOWN Consulting Unavailable INOCENCIO BARNEY Primary Care Unavailable INOCENCIO BARNEY Attending Unavailable INOCENCIO BARNEY PAC Admitting Unavailable BARBRA PORRAS Consulting Unavailable PROVIDER, UNKNOWN Consulting Unavailable BROWN DO~[id number], SINDI NAVARRO Admitting Unavailable SINDI DO~[id number], SINDI NAVARRO Attending Unavailable BARBRA PORRAS Primary Care Unavailable SINDI DO MELANIE Consulting Unavailable SINDI DO MELANIE Consulting Unavailable AMY MEAD MD, I Consulting Unavailable AMY MEAD MD, I Consulting Unavailable BARBRA PORRAS Consulting Unavailable BARBRA PORRAS Consulting Unavailable BURKE PICKERING MD Consulting Unavailable BURKE PICKERING MD Consulting Unavailable Allergies Allergy Classification Reported Allergen(s) Allergy Type Date of Onset Reaction(s) Facility (2 sources) Corticosteroids; Translations: [CORTICOSTEROIDS (GLUCOCORTICOIDS)] Propensity to adverse reactions to drug (disorder) 8 GI Upset [facility] Repository (1 source) Corticosteroids Drug allergy (disorder) [facility] Repository Medications Completed/Discontinued Medications Medication Drug Class(es) Dates Sig (Normalized) Sig (Original) fluticasone / salmeterol (1 source) Corticosteroid , beta2-Adrenerg ic Agonist Start: 8 take 1 puff(s) by inhalation twice daily fluticasone-salmeterol (ADVAIR) 100-50 mcg/dose dsdv Indications: Bronchitis Inhale 1 Puff as instructed twice daily. 1 Inhaler 3 09/03/2018 Active Comment on above: Inhale 1 Puff as ins tructed twice daily. hydroCHLOROthiazide 25 mg oral tablet (1 source) Thiazide Diuretic take 1 tablet by mouth once daily hydroCHLOROthiazide (HYDRODIURIL, ESIDRIX) 25 mg tablet Take 25 mg by mouth once daily. 0 Active Comment on above: Take 25 mg by mouth once daily. omeprazole 40 mg delayed release oral capsule (1 source) Proton Pump Inhibitor Start: 8 take 1 capsule by mouth once daily Omeprazole 40 mg capsule Indications: Cough, persistent Take 1 capsule by mouth once daily. 30 capsule 3 10/16/2018 Active Comment on above: Take 1 capsule by [facility] once daily. 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 0 Active Comment on above: Take 15 mg by mouth once daily. Problems Active Problems Problem Classification Problem Date Documented Da te Episodic/Chronic Essential hypertension (2 sources) Hypertensive disorder; Translations: [Essential (primary) hypertension] Onset: 01-22-2023 06-30-2018 Chronic Osteoarthritis (1 source) Unilateral primary osteoarthritis, left knee; Translations: [Unilateral primary osteoarthritis, left knee] Onset: 02-13-2023 Chronic Other aftercare (3 sources) Aftercare following joint replacement surgery; Translations: [Aftercare following joint replacement surgery] Onset: 10-16-2022 Chronic Other connective tissue disease (3 sources) Presence of left artificial knee joint; Translations: [Presence of left artificial knee joint] Onset: 02-13-2023 Chronic Other connective tissue disease (1 source) Presence of right artificial knee joint; Translations: [Presence of right artificial knee joint] Onset: 10-16-2022 Chronic Other lower respiratory disease (1 source) Cough; Translations: [Cough] Onset: 08-19-2018 Episodic Other lower respiratory disease (1 source) Persistent cough; Translations: [Cough, persistent] 10-16-2018 Episodic Thyroid disorders (1 source) Hypothyroidism; Translations: [Hypothyroidism, unspecified] 06-30-2018 Chronic Past or Other Problems Problem Classification Problem Date Documented Da te Episodic/Chronic E Codes: Fall (1 source) Fall (on) (from) unspecified stairs and steps, initial encounter; Translations: [FALL ON FROM UNS STAIRS STEPS INIT] Onset: 01-20-2024 Episodic Open wounds of head; neck; and trunk (3 sources) Laceration without foreign body of scalp, initial encounter; Translations: [LACERATION W/O FB SCALP INITIAL ENC] Onset: 01-16-2024 Episodic Other fractures (1 source) Unspecified fracture of sternum, initial encounter for closed fracture; Translations: [UNS FX STERNUM INITIAL CLOS FX] Onset: 01-20-2024 Episodic Results Test Name Value Interpretation Reference Range Facility CBC W Auto Differential pane l (Bld)on 01-16-2024 Basophils (Bld) [#/Vol] 0.05 10*3/uL Normal <=0.70 [facility] Comment on above: Performed By: #### 5 7021-8 ####[facility] Director - Ingridfernando BarronCLIA [id number] Basophils/100 WBC (Bld) 0.3 % Normal <=2.0 [facility] Comment on above: Performed By: #### 5 7021-8 ####[facility] Director - Ingrid AndersonCLIA [id number] Eosinophils (Bld) [#/Vol] 0.21 10*3/uL Normal <=0.70 [facility] Comment on above: Performed By: #### 5 7021-8 ####[facility] Director - Ingridfernando BarronCLIA [id number] Eosinophils/100 WBC (Bld) 1.2 % Normal <=10.0 [facility] Comment on above: Performed By: #### 5 7021-8 ####[facility] Director - Ingrid TedrellCLIA [id number] Erythrocyte distribution width (RBC) [Entitic vol] 45.8 fL Normal 36.4-46.3 [facility] Comment on above: Performed By: #### 5 7021-8 ####[facility] Director - Ingridfernando JeanrellCLIA [id number] Hematocrit (Bld) [Volume fraction] 40.1 % Normal 37.0-47.0 [facility] Comment on above: Performed By: #### 5 7021-8 ####[facility] Director - Ingridfernando JeanrellCLIA [id number] Hemoglobin (Bld) [Mass/Vol] 13.7 g/dL Normal 12.0-16.0 [facility] Comment on above: Performed By: #### 7021-8 ####[facility] Director - Ingrid Xie [id number] Immature granulocytes (Bld) [#/Vol] 0.24 10*3/uL High <=0.10 [facility] Comment on above: Performed By: #### 5 7021-8 ####[facility] Director - Ingridfernando BrianIA [id number] Immature granulocytes/100 WBC (Bld) 1.40 % Normal <=1.50 [facility] Comment on above: Performed By: #### 5 7021-8 ####[facility] Director - Ingrid Xie [id number] Lymphocytes (Bld) [#/Vol] 2.32 10*3/uL Normal 1.20-3.40 [facility] Comment on above: Performed By: #### 5 7021-8 ####[facility] Director - Ingrid Xie [id number] Lymphocytes/100 WBC (Bld) 13.8 % Low 20.0-40.0 [facility] Comment on above: Performed By: #### 5 7021-8 ####[facility] Director - Ingrid Xie [id number] MCH (RBC) [Entitic mass] 29.1 pg Normal 27.0-31.0 [facility] Comment on above: Performed By: #### 5 7021-8 ####[facility] Director - Ingrid Xie [id number] MCHC (RBC) [Mass/Vol] 34.2 g/dL Normal 32.0-36.0 [facility] Comment on above: Performed By: #### 5 7021-8 ####[facility] Director - Ingridfernando BarronCLIA [id number] MCV (RBC) [Entitic vol] 85.3 fL Normal 80.0-100.0 [facility] Comment on above: Performed By: #### 5 7021-8 ####[facility] Director - Ingridfernando BarronCLIA [id number] Monocytes (Bld) [#/Vol] 0.99 10*3/uL High 0.10-0.60 [facility] Comment on above: Performed By: #### 5 7021-8 ####[facility] Director - Ingridfernando BrianIA [id number] Monocytes/100 WBC (Bld) 5.9 % Normal <=8.0 [facility] Comment on above: Performed By: #### 5 7021-8 ####[facility] Director - Ingrid AndersonCLIA [id number] Neutrophils (Bld) [#/Vol] 13.04 10*3/uL High 1.40-6.50 [facility] Comment on above: Performed By: #### 5 7021-8 ####[facility] Director - Ingridfernando BarronCLIA [id number] Neutrophils/100 WBC (Bld) 77.4 % High 50.0-70.0 [facility] Comment on above: Performed By: #### 5 7021-8 ####[facility] Director - Ingridfernando BarronCLIA [id number] Nucleated RBC (Bld) [#/Vol] 0.00 10*3/uL Normal <=0.10 [facility] Comment on above: Performed By: #### 5 7021-8 ####[facility] Director - Ingridfernando JeanrellCLIA [id number] Platelet mean volume (Bld) [Entitic vol] 9.6 fL Normal 9.0-13.0 [facility] Comment on above: Performed By: #### 5 7021-8 ####[facility], [place] [address] Director - Ingrid Xie [id number] Platelets (Bld) [#/Vol] 226 10*3/uL Normal 130-400 [facility] Comment on above: Performed By: #### 5 7021-8 ####[facility] Director - Ingrid Xie [id number] RBC (Bld) [#/Vol] 4.70 10*6/uL Normal 4.00-6.30 [facility] Comment on above: Performed By: #### 5 7021-8 ####[facility] Director - Ingrid Xie [id number] WBC (Bld) [#/Vol] 16.85 10*3/uL High 4.80-10.80 [facility] Comment on above: Performed By: #### 5 7021-8 ####[facility] Director - Ingrid Xie [id number] CHEST AP PORTABLEon 01-16-20 CHEST AP PORTABLE PORTABLE CHEST X-RAY INDICATION: Chest pain. COMPARISON: None. TECHNIQUE: Single AP portable chest radiograph. FINDINGS: There are low lung volumes with bronchovascular crowding. There is no focal consolidation, large pleural effusion, or pneumothorax. The osseous structures are unremarkable. IMPRESSION: No focal airspace disease. Normal [facility] CT CERVICAL SPINE WITHOUT ON [place] 01-16-2024 CT CERVICAL SPINE WITHOUT ONLY EXAMINATION: CT HEAD WITHOUT ONLY, CT LUMBAR WITHOUT CONTRAST ONLY, CT DORSAL WITHOUT ONLY, CT CERVICAL SPINE WITHOUT ONLY, CT CHEST ABDOMEN PELVIS WITH CONTRAST TECHNIQUE: Axial CT images were obtained through the brain, cervical, thoracic, and lumbar spine. Chest, abdomen, and pelvis. Sagittal and coronal reformatted images were also obtained. Dose reduction techniques were achieved by using automated exposure control and/or adjustment of mA and/or kV according to patient size and/or use of iterative reconstruction technique. HISTORY: Injury of head COMPARISON: None. FINDINGS: BRAIN: No acute infarct, hemorrhage, mass, or mass effect.Mild chronic white matter microvascular ischemic change. Normal ventricles. No appreciable extra-axial collection. No evidence for skull fracture or lesion. Small right parietal scalp contusion.Orbits are normalParanasal sinuses and mastoid air cells are clear. CERVICAL SPINE: No acute fracture or malalignment. Mild-moderate multilevel degenerative change. No soft tissue abnormality. Thyroid gland is unremarkable. Lung apices are clear. THORACIC SPINE: Mild anterior wedging of T12 vertebral body may represent subtle compression fracture. Otherwise, no acute fracture or malalignment. Age appropriate mild multilevel degenerative change. No worrisome lytic or blastic lesion. No cortical erosion or periosteal reaction. LUMBAR SPINE: No acute fracture or malalignment. Mild to moderate multilevel degenerative change, with associated grade 1 anterolisthesis at L4-5. THORAX: Minimally displaced oblique fracture of the proximal sternal body. No other appreciable osseous fracture. No pneumothorax or pleural effusion. The lungs are clear. Unremarkable thyroid gland. No mediastinal or hilar adenopathy. ABDOMEN AND PELVIS: Evaluation limited by patient's arms at sides. No appreciable traumatic abnormality in the liver, spleen, pancreas, adrenal glands, kidneys, bowel, or mesentery. No ascites, pneumoperitoneum, or abscess. Appendix is normal. Mild sigmoid colonic diverticulosis. Status post hysterectomy. No pelvic mass or lymphadenopathy. Unremarkable bladder. Mild subcutaneous contusions in the lower right buttock/proximal posterior thigh. IMPRESSION: Positive: 1. Minimally displaced oblique fracture of the proximal sternal body. 2. Mild anterior wedging of T12 vertebral body may represent subtle compression fracture. Otherwise, no acute fracture or malalignment in the thoracic spine. Recommend correlation with point tenderness. According to clinical discretion, MRI could also be considered to determine acuity. Negative: 1. No acute intracranial abnormality. 2. No acute fracture or malalignment in the cervical spine. 3. No acute fracture or malalignment in the lumbar spine. 4. No acute traumatic abnormality of the chest, abdomen, and pelvis internal organs. 5. Small right inferior buttock/upper posterior thigh subcutaneous contusion. Normal [facility] CT CHEST ABDOMEN PELVIS WITH CONTRASTon 01-16-2024 CT CHEST ABDOMEN PELVIS WITH CONTRAST EXAMINATION: CT HEAD WITHOUT ONLY, CT LUMBAR WITHOUT CONTRAST ONLY, CT DORSAL WITHOUT ONLY, CT CERVICAL SPINE WITHOUT ONLY, CT CHEST ABDOMEN PELVIS WITH CONTRAST TECHNIQUE: Axial CT images were obtained through the brain, cervical, thoracic, and lumbar spine. Chest, abdomen, and pelvis. Sagittal and coronal reformatted images were also obtained. Dose reduction techniques were achieved by using automated exposure control and/or adjustment of mA and/or kV according to patient size and/or use of iterative reconstruction technique. HISTORY: Injury of head COMPARISON: None. FINDINGS: BRAIN: No acute infarct, hemorrhage, mass, or mass effect.Mild chronic white matter microvascular ischemic change. Normal ventricles. No appreciable extra-axial collection. No evidence for skull fracture or lesion. Small right parietal scalp contusion.Orbits are normalParanasal sinuses and mastoid air cells are clear. CERVICAL SPINE: No acute fracture or malalignment. Mild-moderate multilevel degenerative change. No soft tissue abnormality. Thyroid gland is unremarkable. Lung apices are clear. THORACIC SPINE: Mild anterior wedging of T12 vertebral body may represent subtle compression fracture. Otherwise, no acute fracture or malalignment. Age appropriate mild multilevel degenerative change. No worrisome lytic or blastic lesion. No cortical erosion or periosteal reaction. LUMBAR SPINE: No acute fracture or malalignment. Mild to moderate multilevel degenerative change, with associated grade 1 anterolisthesis at L4-5. THORAX: Minimally displaced oblique fracture of the proximal sternal body. No other appreciable osseous fracture. No pneumothorax or pleural effusion. The lungs are clear. Unremarkable thyroid gland. No mediastinal or hilar adenopathy. ABDOMEN AND PELVIS: Evaluation limited by patient's arms at sides. No appreciable traumatic abnormality in the liver, spleen, pancreas, adrenal glands, kidneys, bowel, or mesentery. No ascites, pneumoperitoneum, or abscess. Appendix is normal. Mild sigmoid colonic diverticulosis. Status post hysterectomy. No pelvic mass or lymphadenopathy. Unremarkable bladder. Mild subcutaneous contusions in the lower right buttock/proximal posterior thigh. IMPRESSION: Positive: 1. Minimally displaced oblique fracture of the proximal sternal body. 2. Mild anterior wedging of T12 vertebral body may represent subtle compression fracture. Otherwise, no acute fracture or malalignment in the thoracic spine. Recommend correlation with point tenderness. According to clinical discretion, MRI could also be considered to determine acuity. Negative: 1. No acute intracranial abnormality. 2. No acute fracture or malalignment in the cervical spine. 3. No acute fracture or malalignment in the lumbar spine. 4. No acute traumatic abnormality of the chest, abdomen, and pelvis internal organs. 5. Small right inferior buttock/upper posterior thigh subcutaneous contusion. Normal [facility] CT DORSAL WITHOUT ONLYon CT DORSAL WITHOUT ONLY EXAMINATION: CT HEAD WITHOUT ONLY, CT LUMBAR WITHOUT CONTRAST ONLY, CT DORSAL WITHOUT ONLY, CT CERVICAL SPINE WITHOUT ONLY, CT CHEST ABDOMEN PELVIS WITH CONTRAST TECHNIQUE: Axial CT images were obtained through the brain, cervical, thoracic, and lumbar spine. Chest, abdomen, and pelvis. Sagittal and coronal reformatted images were also obtained. Dose reduction techniques were achieved by using automated exposure control and/or adjustment of mA and/or kV according to patient size and/or use of iterative reconstruction technique. HISTORY: Injury of head COMPARISON: None. FINDINGS: BRAIN: No acute infarct, hemorrhage, mass, or mass effect.Mild chronic white matter microvascular ischemic change. Normal ventricles. No appreciable extra-axial collection. No evidence for skull fracture or lesion. Small right parietal scalp contusion.Orbits are normalParanasal sinuses and mastoid air cells are clear. CERVICAL SPINE: No acute fracture or malalignment. Mild-moderate multilevel degenerative change. No soft tissue abnormality. Thyroid gland is unremarkable. Lung apices are clear. THORACIC SPINE: Mild anterior wedging of T12 vertebral body may represent subtle compression fracture. Otherwise, no acute fracture or malalignment. Age appropriate mild multilevel degenerative change. No worrisome lytic or blastic lesion. No cortical erosion or periosteal reaction. LUMBAR SPINE: No acute fracture or malalignment. Mild to moderate multilevel degenerative change, with associated grade 1 anterolisthesis at L4-5. THORAX: Minimally displaced oblique fracture of the proximal sternal body. No other appreciable osseous fracture. No pneumothorax or pleural effusion. The lungs are clear. Unremarkable thyroid gland. No mediastinal or hilar adenopathy. ABDOMEN AND PELVIS: Evaluation limited by patient's arms at sides. No appreciable traumatic abnormality in the liver, spleen, pancreas, adrenal glands, kidneys, bowel, or mesentery. No ascites, pneumoperitoneum, or abscess. Appendix is normal. Mild sigmoid colonic diverticulosis. Status post hysterectomy. No pelvic mass or lymphadenopathy. Unremarkable bladder. Mild subcutaneous contusions in the lower right buttock/proximal posterior thigh. IMPRESSION: Positive: 1. Minimally displaced oblique fracture of the proximal sternal body. 2. Mild anterior wedging of T12 vertebral body may represent subtle compression fracture. Otherwise, no acute fracture or malalignment in the thoracic spine. Recommend correlation with point tenderness. According to clinical discretion, MRI could also be considered to determine acuity. Negative: 1. No acute intracranial abnormality. 2. No acute fracture or malalignment in the cervical spine. 3. No acute fracture or malalignment in the lumbar spine. 4. No acute traumatic abnormality of the chest, abdomen, and pelvis internal organs. 5. Small right inferior buttock/upper posterior thigh subcutaneous contusion. Normal [facility] CT HEAD WITHOUT ONLYon 01-16 CT HEAD WITHOUT ONLY EXAMINATION: CT HEAD WITHOUT ONLY, CT LUMBAR WITHOUT CONTRAST ONLY, CT DORSAL WITHOUT ONLY, CT CERVICAL SPINE WITHOUT ONLY, CT CHEST ABDOMEN PELVIS WITH CONTRAST TECHNIQUE: Axial CT images were obtained through the brain, cervical, thoracic, and lumbar spine. Chest, abdomen, and pelvis. Sagittal and coronal reformatted images were also obtained. Dose reduction techniques were achieved by using automated exposure control and/or adjustment of mA and/or kV according to patient size and/or use of iterative reconstruction technique. HISTORY: Injury of head COMPARISON: None. FINDINGS: BRAIN: No acute infarct, hemorrhage, mass, or mass effect.Mild chronic white matter microvascular ischemic change. Normal ventricles. No appreciable extra-axial collection. No evidence for skull fracture or lesion. Small right parietal scalp contusion.Orbits are normalParanasal sinuses and mastoid air cells are clear. CERVICAL SPINE: No acute fracture or malalignment. Mild-moderate multilevel degenerative change. No soft tissue abnormality. Thyroid gland is unremarkable. Lung apices are clear. THORACIC SPINE: Mild anterior wedging of T12 vertebral body may represent subtle compression fracture. Otherwise, no acute fracture or malalignment. Age appropriate mild multilevel degenerative change. No worrisome lytic or blastic lesion. No cortical erosion or periosteal reaction. LUMBAR SPINE: No acute fracture or malalignment. Mild to moderate multilevel degenerative change, with associated grade 1 anterolisthesis at L4-5. THORAX: Minimally displaced oblique fracture of the proximal sternal body. No other appreciable osseous fracture. No pneumothorax or pleural effusion. The lungs are clear. Unremarkable thyroid gland. No mediastinal or hilar adenopathy. ABDOMEN AND PELVIS: Evaluation limited by patient's arms at sides. No appreciable traumatic abnormality in the liver, spleen, pancreas, adrenal glands, kidneys, bowel, or mesentery. No ascites, pneumoperitoneum, or abscess. Appendix is normal. Mild sigmoid colonic diverticulosis. Status post hysterectomy. No pelvic mass or lymphadenopathy. Unremarkable bladder. Mild subcutaneous contusions in the lower right buttock/proximal posterior thigh. IMPRESSION: Positive: 1. Minimally displaced oblique fracture of the proximal sternal body. 2. Mild anterior wedging of T12 vertebral body may represent subtle compression fracture. Otherwise, no acute fracture or malalignment in the thoracic spine. Recommend correlation with point tenderness. According to clinical discretion, MRI could also be considered to determine acuity. Negative: 1. No acute intracranial abnormality. 2. No acute fracture or malalignment in the cervical spine. 3. No acute fracture or malalignment in the lumbar spine. 4. No acute traumatic abnormality of the chest, abdomen, and pelvis internal organs. 5. Small right inferior buttock/upper posterior thigh subcutaneous contusion. Normal [facility] CT LUMBAR WITHOUT CONTRAST O NLYon 01-16-2024 CT LUMBAR WITHOUT CONTRAST ONLY EXAMINATION: CT HEAD WITHOUT ONLY, CT LUMBAR WITHOUT CONTRAST ONLY, CT DORSAL WITHOUT ONLY, CT CERVICAL SPINE WITHOUT ONLY, CT CHEST ABDOMEN PELVIS WITH CONTRAST TECHNIQUE: Axial CT images were obtained through the brain, cervical, thoracic, and lumbar spine. Chest, abdomen, and pelvis. Sagittal and coronal reformatted images were also obtained. Dose reduction techniques were achieved by using automated exposure control and/or adjustment of mA and/or kV according to patient size and/or use of iterative reconstruction technique. HISTORY: Injury of head COMPARISON: None. FINDINGS: BRAIN: No acute infarct, hemorrhage, mass, or mass effect.Mild chronic white matter microvascular ischemic change. Normal ventricles. No appreciable extra-axial collection. No evidence for skull fracture or lesion. Small right parietal scalp contusion.Orbits are normalParanasal sinuses and mastoid air cells are clear. CERVICAL SPINE: No acute fracture or malalignment. Mild-moderate multilevel degenerative change. No soft tissue abnormality. Thyroid gland is unremarkable. Lung apices are clear. THORACIC SPINE: Mild anterior wedging of T12 vertebral body may represent subtle compression fracture. Otherwise, no acute fracture or malalignment. Age appropriate mild multilevel degenerative change. No worrisome lytic or blastic lesion. No cortical erosion or periosteal reaction. LUMBAR SPINE: No acute fracture or malalignment. Mild to moderate multilevel degenerative change, with associated grade 1 anterolisthesis at L4-5. THORAX: Minimally displaced oblique fracture of the proximal sternal body. No other appreciable osseous fracture. No pneumothorax or pleural effusion. The lungs are clear. Unremarkable thyroid gland. No mediastinal or hilar adenopathy. ABDOMEN AND PELVIS: Evaluation limited by patient's arms at sides. No appreciable traumatic abnormality in the liver, spleen, pancreas, adrenal glands, kidneys, bowel, or mesentery. No ascites, pneumoperitoneum, or abscess. Appendix is normal. Mild sigmoid colonic diverticulosis. Status post hysterectomy. No pelvic mass or lymphadenopathy. Unremarkable bladder. Mild subcutaneous contusions in the lower right buttock/proximal posterior thigh. IMPRESSION: Positive: 1. Minimally displaced oblique fracture of the proximal sternal body. 2. Mild anterior wedging of T12 vertebral body may represent subtle compression fracture. Otherwise, no acute fracture or malalignment in the thoracic spine. Recommend correlation with point tenderness. According to clinical discretion, MRI could also be considered to determine acuity. Negative: 1. No acute intracranial abnormality. 2. No acute fracture or malalignment in the cervical spine. 3. No acute fracture or malalignment in the lumbar spine. 4. No acute traumatic abnormality of the chest, abdomen, and pelvis internal organs. 5. Small right inferior buttock/upper posterior thigh subcutaneous contusion. Normal [facility] Comprehensive metabolic 2000 panelon 01-16-2024 Albumin [Mass/Vol] 3.7 g/dL Normal 3.4-5.0 [facility] Comment on above: Performed By: #### L IPASE, 34369-6 ####[facility] [address]Medical Director - Ingrid Xie [id number] ALP [Catalytic activity/Vol] 105 U/L Normal 50-136 [facility] Comment on above: Performed By: #### L MARY, ####[facility], [place] [address]Gydctwo Director - Ingridfernando JeanrellCLTHERESE [id number] ALT [Catalytic activity/Vol] 29 U/L Normal 14-59 [facility] Comment on above: Performed By: #### L MARY, ####[facility], [place] [address]Xyplwov Director - Ingrid Xie [id number] Anion gap [Moles/Vol] 8.0 mmol/L Normal <=15.0 [facility] Comment on above: Performed By: #### L MARY ####[facility] Director - Ingrid TedrellCLIA [id number] AST [Catalytic activity/Vol] 30 U/L Normal 15-37 [facility] Comment on above: Performed By: #### L MARY, ####[facility], [place] [address]Lvbdevg Director - Ingrid FarrellCLIA [id number] Bilirubin [Mass/Vol] 0.4 mg/dL Normal 0.2-1.0 [facility] Comment on above: Performed By: #### L MARY, ####[facility], [place] [address]Fmzwrjt Director - Ingrid FarrellCLIA [id number] Calcium [Mass/Vol] 9.3 mg/dL Normal 8.5-10.1 [facility] Comment on above: Performed By: #### L MARY, ####[facility], [place] [address]Sycthxl Director - Ingrid FarrellCLIA [id number] Chloride [Moles/Vol] 105 mmol/L Normal 98-107 [facility] Comment on above: Performed By: #### L MARY, ####[place] [address] - Ingrid Xie [id number] CO2 [Moles/Vol] 25 mmol/L Normal 21-32 [facility] Comment on above: Performed By: #### L MARY, ####[address] Ingrid Xie [id number] Creatinine [Mass/Vol] 0.70 mg/dL Normal 0.51-0.95 [facility] Comment on above: Performed By: #### L MARY, ####[place] [address] Ingrid Xie [id number] GFR/1.73 sq M.predicted MDRD (S/P/Bld) [Vol rate/Area] mL/min/{1.73_m2} Normal >=59 [facility] Comment on above: Result Comment: Race unknown. Multiply by 1.210 if . Performed By: #### L MARY, ####[place] [address] Ingrid Xie [id number] Glucose [Mass/Vol] 187 mg/dL High 74-106 [facility] Comment on above: Performed By: #### L MARY, ####[address]ct[facility].[address] Ingrid Xie [id number] HGFR GLOMERULAR FILTRATIO N RATE INTERPRETATION~The eGFR is calculated using the MDRD equation.~This equation has been validated in patients with chronic kidney disease;~however, it underestimates the GFR in healthy patients with GFR's over 60 mL/min.~The equation is not valid in children under the age of 18.~NOTE: Criteria for Chronic Kidney Disease:~ ~1. Kidney damage for at least three months, as defined~by structural or functional abnormalities of the kidney,~with or without decreased glomerular filtration rate, manifested by either:~* Pathological abnormalities or~* Markers of Kidney damage, including abnormalities in~the composition of the blood or urine or abnormalities in imaging tests.~ ~2. GFR <60 mL/min/1.73 m squared for at least three months, with or without kidney damage.~ Normal [facility] Comment on above: Performed By: #### L IPASE, ####[facility] Director - [place] [id number] Potassium [Moles/Vol] 3.2 mmol/L Low 3.5-5.1 [facility] Comment on above: Performed By: #### L IPASE, ####[place] [address] Director - [facility] [id number] Protein [Mass/Vol] 7.5 g/dL Normal 6.4-8.2 [facility] Comment on above: Performed By: #### L IPASE, ####[place] [address] Director - [facility] [id number] Sodium [Moles/Vol] 138 mmol/L Normal 136-145 [facility] Comment on above: Performed By: #### L IPASE, ####[place] [address] [id number] Urea nitrogen [Mass/Vol] 20 mg/dL High 7-17 [facility] Comment on above: Performed By: #### L IPASE, 47123-5 ####[place] [address] [id number] LIPASEon 01-16-2024 LIPASES 26 U/L Normal 13-75 [facility] Comment on above: Performed By: #### L IPASE, 52066-7 ####[place] [address], [place] [address]Ztyebsb Director - Ingrid Xie [id number] PT and aPTT panel Coag (PPP) on 01-16-2024 aPTT Coag (PPP) [Time] 25.4 s Normal 23.5-31.3 [facility] Comment on above: Performed By: #### 3 4529-8 ####[facility] Director - Ingrid Xie [id number] HPTINR INR REFERENCE RANGE INTERPRETATION Patients on Coumadin 2.0 - 3.0 Patients with mechanical heart valves 2.5 - 3.[address] [facility] Comment on above: Performed By: #### 3 4529-8 ####[facility] Director - Ingrid Xie [id number] INR Coag (PPP) [Relative time] 1.0 {INR} Normal 0.8-1.1 [facility] Comment on above: Performed By: #### 3 4529-8 ####[facility] Director - Ingrid Xie [id number] PT Coag (PPP) [Time] 10.4 s Normal 9.3-11.5 [facility] Comment on above: Performed By: #### 3 4529-8 ####[facility] Director - Ingrid Xie [id number] TROPONIN HIGH SENSITIVITYon 01-16-2024 TNIH 6.90 pg/mL Normal <=59.00 [facility] Comment on above: Result Comment: <59 pg/mL is considered a negative result. Performed By: #### T ROP2 ####[facility] Director - Ingrid Xie [id number] Final Surgical Pathology Rep aline 02-14-2023 Final Surgical Pathology Report . Pathology Reports Accession: Collected Date/Time: Received Date/Time: Pathologist: [id number] 02/10/2023 12:00 EDT 02/12/2023 10:50 EDT WENCESLAO COPELAND MD Final Surgical Pathology Report DIAGNOSIS: BONE, LEFT KNEE: - DEGENERATIVE ARTICULAR CHANGES WITHOUT EVIDENCE OF ACUTE INFLAMMATION OR TUMOR COMMENT: [facility] [id number] CLINICAL INFORMATION: PRIMARY OSTEOARTHRITIS SPECIMEN: A LEFT KNEE AND BONE FRAGMENTS GROSS DESCRIPTION: A. Received in formalin, labeled with the patients name, Case #[id number], and left knee bone Description/dimensions-multi ple convex and concave fragmented portions of britt-yellow bone/soft tissue aggregating 8 x 8 x 3.5 cm, articular surfaces are focally eburnated, cartilage is focally nodular, underlying bone is yellow/dense to trabecular RS-1 following decalcification Dictated by MUNDO TREJO MICROSCOPIC DESCRIPTION: The microscopic examination is performed, except in the case of Gross Only. Electronically Signed by Pathology Report verified by [facility] WENCESLAO COPELAND Sign out Date: 02/14/2023 13:50 Performing Lab: [facility], [address] [place] [address] Pathology Dept [facility] ([place] KNEE 2 VIEWS LTon 02-10-2023 KNEE 2 VIEWS [place] [address] Patient: MARIAM FRAZIER Phone#: : 1955 Age: 67 Gender: F Pt. Type: Out Account: [id number] Location: [id number] Ordering: LENNIE REYES Exam Date: 02/10/2023/10:11 Family Phys: BARBRA PORRAS Charge Code: 301161 Physician: [place] Order #: [id number] Dose#: PROCEDURE: X-RAY KNEE LT 2 VIEWS COMPARISON: None. INDICATIONS: Post-operative evaluation. FINDINGS: BONES: Postoperative changes of left knee arthroplasty with femoral and tibial hardware components. Hardware at the undersurface of the patella. SOFT TISSUES: There is expected postoperative air in the soft tissues. Cutaneous moncho are present. EFFUSION: None visible. OTHER: Negative. CONCLUSION: 1. Expected postoperative changes of left knee arthroplasty. Dictated by: Hali Josue MD on 02/10/2023 at 10:34 Approved by: Hali Josue MD on 02/10/2023 at 10:36 Normal [facility] CORONAVIRUS PCR - [facility] 02-08-2023 SARS-CoV-2 (COVID-19) RNA FEDERICO+probe Ql (Unsp spec) Negative Normal NORMAL: NEGATIVE [facility] Comment on above: Performed By: #### 2 95083 #### [facility],[address] [place] [address] SEND TO IC? NO Normal [facility] Comment on above: Result Comment: RESU LTS FAXED TO INFECTION CONTROL. SARS-CoV-2 THIS TEST IS BEING USED UNDER THE FDA EUA PROCEDURE. THIS ASSAY HAS BEEN VALIDATED IN THE [facility] FOR USE WITH NASOPHARYNGEAL SPECIMENS IN [facility]. INTERPRETIVE DATA LABORATORY TEST RESULTS SHOULD ALWAYS BE CONSIDERED IN THE CONTEXT OF CLINICAL OBSERVATIONS AND EPIDEMIOLOGICAL DATA IN MAKING FINAL DIAGNOSIS AND PATIENT MANAGEMENT DECISIONS. PATIENT MANAGEMENT SHOULD FOLLOW CURRENT CDC GUIDELINES. A POSITIVE TEST RESULT FOR COVID-19 INDICATES THAT RNA FROM SARS-CoV-2 WAS DETECTED, AND THE PATIENT IS INFECTED WITH THE VIRUS AND PRESUMED TO BE CONTAGIOUS. A NEGATIVE TEST RESULT FOR THIS TEST MEANS THAT SARS-CoV-2 RNA WAS NOT PRESENT IN THE SPECIMEN ABOVE THE LIMIT OF DETECTION. HOWEVER, A NEGATVIE RESULT DOES NOT RULE OUT COVID-19 AND SHOULD NOT BE USED THE SOLE BASIS FOR TREATMENT OR PATIENT MANAGEMENT DECISIONS. A NEGATIVE RESULT DOES NOT EXCLUDE THE POSSIBILITY OF COVID-19. WHEN DIAGNOSTIC TESTING IS NEGATIVE, THE POSSIBLILTY OF A FALSE NEGATIVE RESULT SHOULD BE CONSIDERED IN THE CONTEXT OF A PATIENT'S RECENT EXPOSURES AND THE PRESENCE OF CLINICAL SIGNS AND SYMPTOMS CONSISTENT WITH COVID-19. THE POSSIBILITY OF A FALSE NEGATIVE RESULT SHOULD ESPECIALLY BE CONSIDERED IF THE PATIENT'S RECENT EXPOSURES OR CLINICAL PRESENTATION INDICATE THAT COVID-19 IS LIKELY, AND DIAGNOSTIC TESTS FOR OTHER CAUSES OF ILLNESS (e.g., OTHER RESPIRATORY ILLNESS) ARE NEGATIVE. IF COVID-19 IS STILL SUSPECTED BASED ON EXPOSURE HISTORY TOGETHER WITH OTHER CLINICAL FINDINGS, RE-TESTED SHOULD BE CONSIDERED BY HEALTHCARE PROVIDERS IN CONSULTATION WITH PUBLIC HEALTH AUTHORITIES. Performed By: #### 2 98611 #### [facility],[address] [place] [address] 04387 BMP with eGFRon 01-22-2023 AGE 67 years Normal [facility] Comment on above: Performed By: #### 2 05012 #### [facility],[address] [place] [address] 59541 Anion gap [Moles/Vol] 12 mmol/L Normal 10 - 20 [facility] Comment on above: Performed By: #### 2 37226 #### [facility],[address] [place] [address] 69433 BMP with eGFR Normal [facility] Comment on above: Result Comment: BASI C METABOLIC PANEL Performed By: #### 2 53586 #### [facility],[address] [place] [address] 17821 Calcium [Mass/Vol] 9.5 mg/dL Normal 8.5 - 10.1 [facility] Comment on above: Performed By: #### 2 03168 #### [facility],[address] [place] [address] 82071 Chloride [Moles/Vol] 103 mmol/L Normal 98 - 107 [facility] Comment on above: Performed By: #### 2 52498 #### [facility],[address] [place] [address] 18996 CO2 [Moles/Vol] 30.8 mmol/L Normal 21.0 - 32.0 [facility] Comment on above: Performed By: #### 2 21796 #### [facility],[address] [place] [address] 48335 Creatinine [Mass/Vol] 0.95 mg/dL Normal 0.55 - 1.02 [facility] Comment on above: Performed By: #### 2 29609 #### [facility],[address] [place] [address] 26969 eGFR 58 ML/MINUTE Low 60 - 999 [facility] Comment on above: Performed By: #### 2 87147 #### [facility],[address] [place] [address] 63066 GFR/1.73 sq M.predicted among non-blacks MDRD (S/P/Bld) [Vol rate/Area] mL/min/{1.73_m2} Normal 60 - 999 [facility] Comment on above: Result Comment: ACCO RDING TO THE NATIONAL KIDNEY DISEASE EDUCATION PROGRAM(NKDE), A NORMAL eGFR IS A VALUE GREATER THAN OR EQUAL TO 60 ML/MIN/1.73 SQ METERS. CHRONIC KIDNEY DISEASE: <60mL/MIN/1.73 SQ METERS KIDNEY FAILURE: <15mL/MIN/1.73 SQ METERS THIS TEST SHOULD ONLY BE USED FOR PATIENTS 18 YEARS OF AGE AND OLDER. Performed By: #### 2 59595 #### [facility],[address] [place] [address] 24653 Glucose [Mass/Vol] 83 mg/dL Normal 74 - 106 [facility] Comment on above: Performed By: #### 2 62727 #### [facility],[address] [place] [address] 01379 Potassium [Moles/Vol] 3.2 mmol/L Low 3.5 - 5.1 [facility] Comment on above: Performed By: #### 2 42095 #### [facility],[address] [place] [address] 91532 Sodium [Moles/Vol] 143 mmol/L Normal 136 - 145 [facility] Comment on above: Performed By: #### 2 99717 #### [facility],[address] [place] [address] 77931 Urea nitrogen [Mass/Vol] 12 mg/dL Normal 7 - 18 [facility] Comment on above: Performed By: #### 2 80871 #### [facility],[address] [place] [address] 79692 CBC + DIFFon 01-22-2023 Baso # 0.00 x10EE3/UL Normal 0.00 - 0.10 [facility] Comment on above: Performed By: #### 2 78638 #### [facility],[address] [place], [place] [address] Basophils/100 WBC (Bld) 0.6 % Normal 0.0 - 2.0 [facility] Comment on above: Performed By: #### 2 59478 #### [facility],[address] [place] [address] CBC + DIFF Normal [facility] Comment on above: Result Comment: CBC- COMPLETE BLOOD COUNT Performed By: #### 2 88489 #### [facility],[address] [place] [address] EO # 0.20 x10EE3/UL Normal 0.00 - 0.50 [facility] Comment on above: Performed By: #### 2 56356 #### [place] [address] Eosinophils/100 WBC (Bld) 2.2 % Normal 0.0 - 7.0 [facility] Comment on above: Performed By: #### 2 56720 #### [place] [address] Erythrocyte distribution width (RBC) [Ratio] 15.3 % Normal 12.0 - 15.6 [facility] Comment on above: Performed By: #### 2 49548 #### [facility],[address] [place] [address] Hematocrit (Bld) [Volume fraction] 42.2 % Normal 34.0 - 46.0 [facility] Comment on above: Performed By: #### 2 02029 #### [facility],[address] [place] [address] Hemoglobin (Bld) [Mass/Vol] 14.3 g/dL Normal 12.0 - 16.0 [facility] Comment on above: Performed By: #### 2 03793 #### [facility],[address] [place] [address] Lymph # 2.00 x10EE3/UL Normal 0.80 - 2.80 [facility] Comment on above: Performed By: #### 2 19063 #### [facility],[address] [place] [address] Lymphocytes/100 WBC (Bld) 26.4 % Normal 20.0 - 45.0 [facility] Comment on above: Performed By: #### 2 99390 #### [facility],[address] [place] [address] MANUAL DIFF N/A Normal [facility] Comment on above: Performed By: #### 2 25590 #### [facility],[address] [place] [address] MCH (RBC) [Entitic mass] 29 pg Normal 27 - 33 [facility] Comment on above: Performed By: #### 2 91863 #### [place] [address] MCHC 34 X10 3 Normal 32 - 36 [facility] Comment on above: Performed By: #### 2 17346 #### [facility],[address] [place] [address] MCV (RBC) [Entitic vol] 86 fL Normal 80 - 99 [facility] Comment on above: Performed By: #### 2 00022 #### [facility],[address] [place] [address] [place] # 0.60 x10EE3/UL Normal 0.20 - 1.00 [facility] Comment on above: Performed By: #### 2 41996 #### [facility],[address] [place] [address] MONOS % 8.1 % Normal 0.0 - 10.0 [facility] Comment on above: Performed By: #### 2 95266 #### [facility],[address] [place] [address] Morphology Nestor (Bld) [Interp] N/A Normal [facility] Comment on above: Performed By: #### 2 70231 #### [facility],[address] [place] [address] 39740 Neut # 4.80 x10EE3/UL Normal 1.50 - 7.10 [facility] Comment on above: Performed By: #### 2 61454 #### [facility],[address] [place] [address] 51446 Neutrophils/100 WBC (Bld) 62.7 % Normal 46.0 - 76.0 [facility] Comment on above: Performed By: #### 2 21854 #### [address] [address] PLATELET 268 x10EE3/UL Normal 150 - 450 [facility] Comment on above: Performed By: #### 2 93772 #### [place] [address] Platelet mean volume (Bld) [Entitic vol] 8.1 fL Normal 6.6 - 10.5 [facility] Comment on above: Result Comment: AUTO MATED DIFFERENTIAL Performed By: #### 2 62725 #### [facility],[address] [place] [address] 39030 RBC 4.94 x 10EE6/UL Normal 4.10 - 5.30 [facility] Comment on above: Performed By: #### 2 20624 #### [facility],[address] [place] [address] 68229 WBC 7.7 x 10EE3/UL Normal 4.5 - 10.8 [facility] Comment on above: Performed By: #### 2 01432 #### [address] [address] Final Surgical Pathology Rep [facility] 12-18-2022 Final Surgical Pathology Report . Pathology Reports Accession: Collected Date/Time: Received Date/Time: Pathologist: [id number] 12/11/2022 14:27 EST 12/12/2022 14:27 MD BENTON YARBROUGH Final Surgical Pathology Report DIAGNOSIS: A. COLON, 150 CM, BIOPSY: - MILD CHRONIC INFLAMMATION WITH MILD NONSPECIFICALLY INCREASED EOSINOPHILS AND FOCI OF INCREASED SUBEPITHELIAL COLLAGEN WITH SOME FEATURES SUGGESTIVE BUT NOT DIAGNOSTIC OF COLLAGENOUS COLITIS B. COLON, 75 CM, BIOPSY: - MILD CHRONIC INFLAMMATION WITH MILD NONSPECIFICALLY INCREASED EOSINOPHILS AND REACTIVE CHANGES C. COLON, 35 CM, BIOPSY: - MILD CHRONIC INFLAMMATION OF MILD NONSPECIFIC INCREASED EOSINOPHILS AND REACTIVE CHANGES COMMENT: [facility] - [id number] CLINICAL INFORMATION: COLON CANCER SCREENING Procedure: MAC COLONOSCOPY SPECIMEN: A COLON BIOPSY @ 150 CM B COLON BIOPSY @ 75 CM C COLON BIOPSY @ 35 CM GROSS DESCRIPTION: A. Received in formalin, labeled with the patients name, Case #[id number], and 150 cm 2 britt tissue fragments measuring 0.4 and 0.5 cm. TS -1 B. Received in formalin labeled 75 cm are 2 britt tissue fragments measuring 0.4 and 0.7 cm. TS -1 C. Received in formalin labeled 35 cm are 2 britt tissue fragments measuring 0.2 and 0.4 cm. TS -1 Dictated by MUNDO TREJO MICROSCOPIC DESCRIPTION: The microscopic examination is performed, except in the case of Gross Only. Electronically Signed by Pathology Report verified by [facility] BENTON BENITO MD Sign out Date: 12/18/2022 11:45 Performing Lab: [facility], [address] [place] [address] Pathology Dept [facility] ([place]) OPERATIVE PROCEDURESon 12-12 OPERATIVE PROCEDURES [facility] OPERATIVE REPORT NAME ACCOUNT SEX AGE ADMIT DISCHARGE PT MED. RECORD# NUMBER DATE DATE TYPE PATTY, [id number] F 67 12/11/22 12/11/22 2 MARIAM B [id number] ROOM: [facility] DATE OF : 1955 DICTATING PHYSICIAN: Emily Reyes DATE OF PROCEDURE: December 11, 2022 SURGEON: Emily Reyes MD SANDER MACHINE: ANESTHESIOLOGIST: Ingrid Kaur CRNA PREPROCEDURE DIAGNOSIS: Screening colonoscopy. Diverticulosis. Diarrhea. Hemorrhoids. POSTPOCEDURE DIAGNOSIS: Screening colonoscopy. Diverticulosis. Diarrhea. Hemorrhoids. PROCEDURE PERFORMED: Screening colonoscopy. Random biopsies. SPECIMEN: 1. Biopsy at 150 cm. 2. Biopsy at 75 cm. 3. Biopsy at 35 cm. (All sent to Pathology.) 4. Stool sent for Clostridium difficile assay to Microbiology. ESTIMATED BLOOD LOSS: Minimal. INDICATIONS OF PROCEDURE: Mariam Frazier is a pleasant 67-year-old lady who has had recurrent bouts of diarrhea since June. She also has a vague history of possible dark stool but no history of bloody stool. DESCRIPTION OF PROCEDURE: After informed consent and intravenous fluids, she was brought to Endoscopy, placed on a padded gurney in left lateral decubitus position with adequate padding at pressure points and time out verification was done appropriately. She was given sedation per Anesthesia with monitoring throughout. Digital exam in left lateral decubitus position showed some small external hemorrhoidal tags, normal tone, no discrete mass. The Olympus CF-HQ190 L flexible endoscope was introduced through the anal verge and carefully advanced protecting surrounding mucosa and then through the sigmoid colon, which was rather tortuous. There are Page 1 of 2 MARIAM FRAZIER Operative Report MARIAM FRAZIER : 1955 scattered diverticula. Mucosal surfaces appear unremarkable. There is a lot of scattered stool and liquid which was copiously irrigated and suctioned to improve view. The descending colon was carefully viewed, the splenic flexure, transverse colon, hepatic flexure were carefully viewed. The colon was rather patulous and floppy but with repeated repositioning, irrigation, suctioning back and forth movement, and external pressure application, the view improved and the scope was carefully advanced down the ascending colon toward the ileocecal junction and the landmarks noted and documented. The prep was fair, but with copious irrigation and suctioning the view improved. The cecum and ascending colon were carefully viewed. There was no evidence of any mass, polypoid structures, stricture, angiodysplasia, or significant colitis. Random biopsies were obtained as the scope was carefully withdrawn with circumferential visualization, irrigation, suctioning, and back and forth movement. First biopsy was in the ascending colon at 150 cm. The scope was further withdrawn to 75 cm where additional cold grasp forceps were used to obtain random biopsy. The scope was further withdrawn down the descending colon towards the sigmoid colon at 35 cm. Another random biopsy was obtained with the cold grasp forceps, standard technique. Each site had good hemostasis. The scope was then further withdrawn into the rectal vault retroflexed, rotated, straightened out and withdrawn with decompression. There are small internal and external hemorrhoids but there is no tear, no fissure, no fungating mass. No polyps were seen. The random biopsies will be sent for further evaluation. Stool, which was aspirated, was sent for Clostridium difficile assay to Microbiology and this will be followed up in the office. Patient tolerated procedure well, is stable at the close of procedure. Case will be discussed with her when she is more awake and alert. Dictated By: Emily Reyes MD 12/11/22 14:32 JOB #: [id number] Transcribed By: sp 12/11/22 20:41 Electronically signed by: E-Sign Dr. Emily Reyes MD 12/12/22 11:00 Page 2 of 2 MARIAM FRAZIER Operative Report Normal [facility] C DIFF COMPLETEon 12-11-2022 C DIFF COMPLETE C DIFF COMPLETE 0{ C-DIFF TOXIN _NEGATIVE__ (NRL: NEGATIVE ) 12/11/22.1845.JLN. C-DIFF AG NEGATIVE INTERNAL NEG QC PASS INTERNAL POS QC PASS EXTERNAL QC DONE? YES INTERPRETATION: POSITIVE Ag,POSITIVE Tox = C. Diff is present & producing toxins POSITIVE Ag,NEGATIVE Tox = C. Diff is present NEGATICE Ag,NEGATICE Tox = C. Diff is not present A low percentage of specimens may test negative for antigen but positive for toxin. A fresh specimen should be resumbitted for retesting. Normal [facility] Comment on above: Performed By: #### 2 [id number] ####[facility],[address] [place] [address] CT LOWER EXTREMITY LT WOon 0 12-02-2022 CT LOWER EXTREMITY LT WO [place] [address] Patient: MARIAM FRAZIER. Phone#: : 1955 Age: 67 Gender: F Pt. Type: Out Account: [id number] Location: [facility] Ordering: LENNIE REYES Exam Date: 12/02/2022/13:59 Family Phys: BARBRA PORRAS Charge Code: [id number] Physician: [place] Order #: [id number] Dose#: PROCEDURE: CT LOWER EXTREMITY LT WO CONTRAST COMPARISON: None. INDICATIONS: Velarde protocol. TECHNIQUE: Multi-planar CT images were created without intravenous contrast. All CT scans at this facility use dose modulation, iterative reconstruction, and/or weight based dosing when appropriate to reduce radiation dose to as low as reasonably achievable. IV CONTRAST: No IV contrast used,ml TOTAL DOSE: 37.4 CTDIvol(mGy) FINDINGS: BONES: Medial and patellofemoral compartments joint space loss. There is spurring of the medial and lateral femoral condyles and tibial plateau. There is spurring of the undersurface of the patella and of the femoral trochlea. There is subchondral cyst formation and diffuse bony demineralization. There is a loose body anterior to the tibial spines measuring 0.5 x 0.7 cm, series 9, image 54. There is a loose body posterior to the tibial spines measuring 0.3 x 0.5 cm. SOFT TISSUES: Negative. No visible soft tissue swelling. EFFUSION: There is a Patricia cyst measuring 3.4 by 1.8 x 1.7 cm. OTHER: Negative. CONCLUSION: 1. Tricompartmental osteoarthritis 2. Loose bodies 3. Patricia cyst Dictated by: Hali Josue MD on 12/02/2022 at 17:00 Approved by: Hali Josue MD on 12/02/2022 at 17:08 Normal [facility] Final Surgical Pathology Rep [facility] 10-18-2022 Final Surgical Pathology Report . Pathology Reports Accession: Collected Date/Time: Received Date/Time: Pathologist: [id number] 10/14/2022 10:20 EST 10/15/2022 14:24 EST WENDY SILVER MD Final Surgical Pathology Report DIAGNOSIS: A. RIGHT KNEE BONE: - DEGENERATIVE CHANGES IN ARTICULAR CARTILAGE - UNREMARKABLE UNDERLYING BONE COMMENT: JP - [id number] CLINICAL INFORMATION: RIGHT KNEE OSTEOARTHRITIS SPECIMEN: A RIGHT KNEE BONE GROSS DESCRIPTION: A. Received in formalin, labeled with the patients name, Case #[id number], and right knee bone Description/dimensions-multi ple convex and concave fragmented portions of britt-yellow bone/soft tissue aggregating 8 x 8 x 5 cm, articular surfaces are focally eburnated, cartilage is focally nodular, underlying bone is yellow/dense to trabecular RS-1 following decalcification Dictated by MUNDO TREJO MICROSCOPIC DESCRIPTION: The microscopic examination is performed, except in the case of Gross Only. Electronically Signed by Pathology Report verified by [facility] WENDY SILVER Sign out Date: 10/18/2022 12:20 Performing Lab: [facility], [facility] [place] [address] Pathology Dept Normal [facility] ([place]) KNEE 2 VIEWS RTon 10-14-2022 KNEE 2 VIEWS RT [address] [address] Patient: MARIAM FRAZIER Phone#: : 1955 Age: 67 Gender: F Pt. Type: Out Account: [id number] Location: [facility] Ordering: LENNIE REYES Exam Date: 10/14/2022/12:01 Family Phys: BARBRA PORRAS Charge Code: [id number] Physician: [place] Order #: [id number] Dose#: PROCEDURE: X-RAY KNEE RT 2 VIEWS COMPARISON: [facility], CT, LOWER EXTREMITY RT WO, 09/04/2022, 14:11. INDICATIONS: Right total knee replacement FINDINGS: BONES: Postoperative changes of right knee arthroplasty with femoral and tibial hardware components. There is a radiopaque patellar button present. SOFT TISSUES: Cutaneous moncho are present. Expected postoperative air is seen in the soft tissues. EFFUSION: None visible. OTHER: Negative. CONCLUSION: 1. Expected postoperative changes of right knee arthroplasty. Dictated by: Hali Josue MD on 10/14/2022 at 12:33 Approved by: Hali Josue MD on 10/14/2022 at 12:40 Normal [facility] CORONAVIRUS PCR - [facility] 10-01-2022 SARS-CoV-2 (COVID-19) RNA FEDERICO+probe Ql (Unsp spec) Negative Normal NORMAL: NEGATIVE [facility] Comment on above: Performed By: #### 2 [id number] #### [facility],[address] [place], [place] [id number] SEND TO IC? NO Normal [facility] Comment on above: Result Comment: RESU LTS FAXED TO INFECTION CONTROL. SARS-CoV-2 THIS TEST IS BEING USED UNDER THE FDA EUA PROCEDURE. THIS ASSAY HAS BEEN VALIDATED IN THE [facility] FOR USE WITH NASOPHARYNGEAL SPECIMENS IN [facility]. INTERPRETIVE DATA LABORATORY TEST RESULTS SHOULD ALWAYS BE CONSIDERED IN THE CONTEXT OF CLINICAL OBSERVATIONS AND EPIDEMIOLOGICAL DATA IN MAKING FINAL DIAGNOSIS AND PATIENT MANAGEMENT DECISIONS. PATIENT MANAGEMENT SHOULD FOLLOW CURRENT CDC GUIDELINES. A POSITIVE TEST RESULT FOR COVID-19 INDICATES THAT RNA FROM SARS-CoV-2 WAS DETECTED, AND THE PATIENT IS INFECTED WITH THE VIRUS AND PRESUMED TO BE CONTAGIOUS. A NEGATIVE TEST RESULT FOR THIS TEST MEANS THAT SARS-CoV-2 RNA WAS NOT PRESENT IN THE SPECIMEN ABOVE THE LIMIT OF DETECTION. HOWEVER, A NEGATVIE RESULT DOES NOT RULE OUT COVID-19 AND SHOULD NOT BE USED THE SOLE BASIS FOR TREATMENT OR PATIENT MANAGEMENT DECISIONS. A NEGATIVE RESULT DOES NOT EXCLUDE THE POSSIBILITY OF COVID-19. WHEN DIAGNOSTIC TESTING IS NEGATIVE, THE POSSIBLILTY OF A FALSE NEGATIVE RESULT SHOULD BE CONSIDERED IN THE CONTEXT OF A PATIENT'S RECENT EXPOSURES AND THE PRESENCE OF CLINICAL SIGNS AND SYMPTOMS CONSISTENT WITH COVID-19. THE POSSIBILITY OF A FALSE NEGATIVE RESULT SHOULD ESPECIALLY BE CONSIDERED IF THE PATIENT'S RECENT EXPOSURES OR CLINICAL PRESENTATION INDICATE THAT COVID-19 IS LIKELY, AND DIAGNOSTIC TESTS FOR OTHER CAUSES OF ILLNESS (e.g., OTHER RESPIRATORY ILLNESS) ARE NEGATIVE. IF COVID-19 IS STILL SUSPECTED BASED ON EXPOSURE HISTORY TOGETHER WITH OTHER CLINICAL FINDINGS, RE-TESTED SHOULD BE CONSIDERED BY HEALTHCARE PROVIDERS IN CONSULTATION WITH PUBLIC HEALTH AUTHORITIES. Performed By: #### 2 70695 #### [facility],[address] [place], [place] [id number] BMP with eGFRon 09-18-2022 AGE 66 years Normal [facility] Comment on above: Performed By: #### 2 68361 #### [facility],[address] [place] [address] Anion gap [Moles/Vol] 10 mmol/L Normal - [facility] Comment on above: Performed By: #### 2 82428 #### [facility],[address] [place] [address] BMP with eGFR Normal [facility] Comment on above: Result Comment: BASI C METABOLIC PANEL Performed By: #### 2 33439 #### [facility],[address] [place] [address]018 Calcium [Mass/Vol] 9.4 mg/dL Normal 8.5 - 10.1 [facility] Comment on above: Performed By: #### 2 19433 #### [facility],[address] [place] [address] 17755 Chloride [Moles/Vol] 102 mmol/L Normal 98 - 107 [facility] Comment on above: Performed By: #### 2 47698 #### [facility],[address] [place] [address]14 CO2 [Moles/Vol] 28.3 mmol/L Normal 21.0 - 32.0 [facility] Comment on above: Performed By: #### 2 03321 #### [facility],[address] [place], [place] [id number] Creatinine [Mass/Vol] 0.76 mg/dL Normal 0.55 - 1.02 [facility] Comment on above: Performed By: #### 2 89383 #### [address] [address] GFR/1.73 sq M.predicted among non-blacks MDRD (S/P/Bld) [Vol rate/Area] mL/min/{1.73_m2} Normal 60 - 999 [facility] Comment on above: Performed By: #### 2 13611 #### [facility],[address] [place], [place] [id number] Result Comment: ACCO RDING TO THE NATIONAL KIDNEY DISEASE EDUCATION PROGRAM(NKDE), A NORMAL eGFR IS A VALUE GREATER THAN OR EQUAL TO 60 ML/MIN/1.73 SQ METERS. CHRONIC KIDNEY DISEASE: <60mL/MIN/1.73 SQ METERS KIDNEY FAILURE: <15mL/MIN/1.73 SQ METERS THIS TEST SHOULD ONLY BE USED FOR PATIENTS 18 YEARS OF AGE AND OLDER. Glucose [Mass/Vol] 98 mg/dL Normal 74 - 106 [facility] Comment on above: Performed By: #### 2 28837 #### [facility],[address] [place] [address]154 Potassium [Moles/Vol] 4.1 mmol/L Normal 3.5 - 5.1 [facility] Comment on above: Performed By: #### 2 19551 #### [facility],[address] [place] [address] Sodium [Moles/Vol] 136 mmol/L Normal 136 - 145 [facility] Comment on above: Performed By: #### 2 21538 #### [facility],[address] [place] [address] Urea nitrogen [Mass/Vol] 20 mg/dL High 7 - 18 [facility] Comment on above: Performed By: #### 2 52880 #### [facility],[address] [place] [address] CBC + DIFFon 09-18-2022 Baso # 0.00 x10EE3/UL Normal 0.00 - 0.10 [facility] Comment on above: Performed By: #### 2 81805 #### [facility],[address] [place] [address] Basophils/100 WBC (Bld) 0.7 % Normal 0.0 - 2.0 [facility] Comment on above: Performed By: #### 2 39012 #### [facility],[address] [place] [address]169 CBC + DIFF Normal [facility] Comment on above: Result Comment: CBC- COMPLETE BLOOD COUNT Performed By: #### 2 79688 #### [facility],[address] [place] [address]248 EO # 0.10 x10EE3/UL Normal 0.00 - 0.50 [facility] Comment on above: Performed By: #### 2 47282 #### [facility],[address] [place] [address] Eosinophils/100 WBC (Bld) 1.4 % Normal 0.0 - 7.0 [facility] Comment on above: Performed By: #### 2 07085 #### [facility],[address] [place] [address] Erythrocyte distribution width (RBC) [Ratio] 14.9 % Normal 12.0 - 15.6 [facility] Comment on above: Performed By: #### 2 12795 #### [facility],[address] [place] [address] Hematocrit (Bld) [Volume fraction] 42.1 % Normal 34.0 - 46.0 [facility] Comment on above: Performed By: #### 2 79739 #### [facility],[address] [place] [address] Hemoglobin (Bld) [Mass/Vol] 14.0 g/dL Normal 12.0 - 16.0 [facility] Comment on above: Performed By: #### 2 36877 #### [facility],[address] [place] [address] Lymph # 1.30 x10EE3/UL Normal 0.80 - 2.80 [facility] Comment on above: Performed By: #### 2 87457 #### [facility],[address] [place], [place] [id number] Lymphocytes/100 WBC (Bld) 20.0 % Normal 20.0 - 45.0 [facility] Comment on above: Performed By: #### 2 52444 #### [facility],[address] [place] [address] MANUAL DIFF N/A Normal [facility] Comment on above: Performed By: #### 2 13756 #### [facility],[address] [place] [address] 56685 MCH (RBC) [Entitic mass] 29 pg Normal 27 - 33 [facility] Comment on above: Performed By: #### 2 46341 #### [facility],[address] [place] [address] MCHC 33 X10 3 Normal 32 - 36 [facility] Comment on above: Performed By: #### 2 85974 #### [facility],[address] [place] [address] MCV (RBC) [Entitic vol] 88 fL Normal 80 - 99 [facility] Comment on above: Performed By: #### 2 58655 #### [facility],[address] [place] [address] Greenup # 0.60 x10EE3/UL Normal 0.20 - 1.00 [facility] Comment on above: Performed By: #### 2 09407 #### [facility],[address] [place] [address] MONOS % 8.7 % Normal 0.0 - 10.0 [facility] Comment on above: Performed By: #### 2 00042 #### [facility],[address] [place] [address] Morphology Nestor (Bld) [Interp] N/A Normal [facility] Comment on above: Result Comment: {CD] Performed By: #### 2 12849 #### [facility],[address] [place] [address] Neut # 4.60 x10EE3/UL Normal 1.50 - 7.10 [facility] Comment on above: Performed By: #### 2 46161 #### [facility],[address] [place] [address] Neutrophils/100 WBC (Bld) 69.2 % Normal 46.0 - 76.0 [facility] Comment on above: Performed By: #### 2 76507 #### [facility],[address] [place] [address] PLATELET 234 x10EE3/UL Normal 150 - 450 [facility] Comment on above: Performed By: #### 2 39874 #### [facility],[address] [place] [address] 16371 Platelet mean volume (Bld) [Entitic vol] 8.2 fL Normal 6.6 - 10.5 [facility] Comment on above: Result Comment: AUTO MATED DIFFERENTIAL Performed By: #### 2 74950 #### [facility],[address] [place] [address] 80323 RBC 4.79 x 10EE6/UL Normal 4.10 - 5.30 [facility] Comment on above: Performed By: #### 2 60332 #### [facility],[address] [place] [address] 40034 WBC 6.7 x 10EE3/UL Normal 4.5 - 10.8 [facility] Comment on above: Performed By: #### 2 53806 #### [facility],[address] [place] [address]007 CHEST 2 VIEWSon 09-18-2022 CHEST 2 VIEWS [place] [address] Patient: MARIAM FRAZIER Phone#: : 1955 Age: 66 Gender: F Pt. Type: Out Account: [id number] Location: [facility] Ordering: LENNIE REYES Exam Date: 09/18/2022/10:28 Family Phys: BARBRA PORRAS Charge Code: [id number] Physician: [place] Order #: [id number] Dose#: PROCEDURE: X-RAY CHEST 2 VIEWS COMPARISON: [facility], XR, CHEST PA/LAT, 12/30/2017, 13:53. INDICATIONS: Pre-operative evaluation. FINDINGS: LUNGS: Normal. No significant pulmonary parenchymal abnormalities. VASCULATURE: Normal. Unremarkable pulmonary vasculature. CARDIAC: Normal. No cardiac silhouette abnormality or cardiomegaly. MEDIASTINUM: Normal. No visible mass or adenopathy. PLEURA: Normal. No effusion or pleural thickening. BONES: Normal. No fracture or visible bony lesion. OTHER: Negative. CONCLUSION: No acute disease. No significant change has occurred. Dictated by: Zaira Floyd MD on 09/18/2022 at 15:40 Approved by: Zaira Floyd MD on 09/18/2022 at 15:41 Normal [facility] CT LOWER EXTREMITY RT WOon 1 CT LOWER EXTREMITY RT WO [address] [address] Patient: MARIAM FRAZIER Phone#: : 1955 Age: 66 Gender: F Pt. Type: Out Account: [id number] Location: 2 Ordering: LENNIE REYES Exam Date: 09/04/2022/14:11 Family Phys: Charge Code: [id number] Physician: [place] Order #: [id number] Dose#: 36.4 mGy PROCEDURE: CT LOWER EXTREMITY RT WO CONTRAST COMPARISON: None. INDICATIONS: Velarde. TECHNIQUE: Multi-planar CT images were created without intravenous contrast. All CT scans at this facility use dose modulation, iterative reconstruction, and/or weight based dosing when appropriate to reduce radiation dose to as low as reasonably achievable. IV CONTRAST: No IV contrast used,0ml TOTAL DOSE: 36.4 CTDIvol(mGy) FINDINGS: BONES: Nondisplaced fracture of the posterior medial tibial plateau involving a large bulky spur, series 3, image 312 and series 10, image 85. Large bulky spurring of the medial and lateral femoral condyles and medial and lateral tibial plateau. Bulky spurs are seen at the intercondylar notch. There is mild medial compartment joint space loss. Spurring of the undersurface of the patella and femoral trochlea. SOFT TISSUES: Negative. No visible soft tissue swelling. EFFUSION: Small suprapatellar joint effusion. OTHER: Negative. CONCLUSION: 1. Nondisplaced fracture of the posterior medial tibial plateau 2. Tricompartmental osteoarthritis Dictated by: Hali Josue MD on 09/05/2022 at 18:37 Approved by: Hali Josue MD on 09/05/2022 at 18:44 [facility] CNPMimi 03-07-2022 CNPN Telephone ([facility]) MARIAM FRAZIER ([id number]) 1955 F Date Time Provider Department 03/07/22 NATACHA BUTLER [facility] During your visit today, we recorded the following information about you: Aylin Dawson 03/07/2022 11:20 AM Signed Received form from [facility] requesting Complete Health Record Form was successfully faxed to medical records. Allergies As of Date: 03/07/2022 Noted Allergy Reaction STEROIDS (CORTICOSTEROIDS (GLUCOC*06/30/2018 8 - GI Upset Comments: Throws me into diverticulitis and I end up in the hospital, once following injection, once orally. Date Reviewed: 11/02/2018 Reviewed by: Elizabeth Ramirez - Fully Assessed Reason for Visit: Other [Other] Cmt: request for records Prescriptions as of 03/07/2022 - Omeprazole 40 mg capsule Take 1 capsule by mouth once daily. - fluticasone-salmeterol (ADVAIR) 100-50 mcg/dose dsdv Inhale 1 Puff as instructed twice daily. - hydroCHLOROthiazide (HYDRODIURIL, ESIDRIX) 25 mg tablet Take 25 mg by mouth once daily. - thyroid (CAGE OPERATOR THYROID) 15 mg tablet Take 15 mg by mouth once daily. Problem List As Of Date 03/07/2022 Noted Resolved High blood pressure [I10] Hypothyroidism [E03.9] Cough, persistent [R05.3] Encounter Status:Closed by AYLIN DAWSON on 03/07/22 Normal [facility] Eosin Smron 08-19-2018 Eosinophils Auto #/vol (Bld) Rare eosinophils present. Normal [facility] Comment on above: Performed By: #### E OSSMR ####[facility] [address] [place], [place] [phone] HISTORY PHYSICALon 8 HISTORY PHYSICAL HNO ID: [id number] thor: Natacha Kennedy: Pulmonary DiseaseAuthor Type: PhysicianType: HANDPFiled: 08/19/2018 2:13 PMNote Text:PROCEDURAL SEDATION HISTORY AND PHYSICAL EXAMSERVICE DATE: 08/19/2018SERVICE TIME: 2:10 PM.SubjectiveHPI: This is a 62 year old female who presents with chronic cough.PAST ANESTHESIA HISTORY: No history of adverse eventPAST MEDICAL HISTORYDiagnosis Date- High blood pressure- HypothyroidismNo past surgical history on file.Prior to Admission medications as of 08/19/18 1408Medication Sig Last Dose TakinghydroCHLOROthiazide (HYDRODIURIL, ESIDRIX) 25 mg tablet Take 25 mg bymouth once daily. 08/19/2018 at 0800 Yesthyroid (CAGE OPERATOR THYROID) 15 mg tablet Take 15 mg by mouth once daily.08/19/2018 at 0800 YesALLERGIESAllergen Reactions- Steroids [Corticost* GI Upset Throws me into diverticulitis and I end up in the hospital, oncefollowing injection, once orally.ObjectivePHYSICAL EXAM: GENERAL: No Distress, Cooperative, SmilingSKIN: Skin color, texture, turgor normal. No rashes or lesions.ABDOMEN: Not distended.EXTREMITIES: Extremities normal, no deformities, edema, clubbing or skindiscoloration. Good capillary refill.NEURO: Awake, alert, oriented x 3. Normal, symmetric muscle strength.AIRWAY: Airway Visualization of Uvula: YesMouth opening greater than 2 fingerbreadths: YesNeck Full Range of Motion: YesLUNGS: Lungs clear to auscultation, Good diaphragmatic excursionCARDIAC: Normal S1 and S2; no rubs, murmurs, or gallopsAssessment/PlanASA Class: ASA Class:: Patient with mild systemic diseaseActive Problems: * No active hospital problems. *Resolved Problems: * No resolved hospital problems. *Provisional Diagnosis/Treatment Plan: Flexible bronchoscopy, bronchialwashing, possible biopsy.SEDATION GOAL: ModerateSIGNATURE: Natacha Butler MD PATIENT NAME: Mariam DyerdelDATE: August 19, 2018 : 2:10 PM PAGER: [phone] [facility] OPERATIVE NOon 08-19-2018 OPERATIVE NO HNO ID: [id number] thor: Natacha Kennedy: Pulmonary DiseaseAuthor Type: PhysicianType: Operative ReportFiled: 08/19/2018 3:01 PMNote Text:See Procedure Note.Natacha Butler MD, [facility] Medical Office Building [address] [address]K: [phone]: [phone] [facility] PROCEDUREon 08-19-2018 Protein mass conc HNO ID: [id number] thor: Natacha Kennedy: Pulmonary DiseaseAuthor Type: PhysicianType: ProceduresFiled: 08/19/2018 3:01 PMNote Text:BEDSIDE PROCEDURE NOTEBRONCHOSCOPYDate/Start Time: 08/19/2018 2:28 PMPerformed by: NATACHA BUTLERAuthorized by: NATACHA BUTLERConlisbet/Burr ProtocolWritten Consent Obtained: YesSign In Communication: CompletedTime Out completed: Team confirms correct patient, procedure, side/site,position (if applicable) and completion AND review of fire riskassessment/protocols (if appropriate)Affirmation of Time Out: YesSign Out Discussion: YesPre-procedure Details:Personnel directly involved with the procedure wore the appropriate PPE.Medications:Analgesia, anxiolysis and local anesthesia Analgesia (see MAR): Fentanyl Local Anesthesia (see MAR): Lidocaine 2% Anxiolysis (see MAR): MidazolamProcedure Details:Type: StandardIndication: Cough, chronicBronchoscope In Time: 08/19/2018 2:31 PMThe bronchoscope was introduced via the right nostril.Maneuvers Performed: Washing and endobronchial biopsy Endobronchial Biopsy - Location: Right middle lobe Endobronchial Biopsy - Instruments: Forceps Endobronchial Biopsy - # of Samples: 6 Washing - Location: Tracheoronchial tree Washing - Returned Fluid Description: Thin and cellular Washing - # of Samples: 1Bronchoscope Out Time: 08/19/2018 2:48 PMAbnormal Findings: Airway abnormality Airway Abnormality Details: Erythema and inflammation Abnormal Airway Site: Diffuse.Post-procedure Details:Estimated Blood Loss: ML (comment) (40)Specimens Sent: Respiratory culture and stain (Fungal culture. Eosinophilsmear. )SIGNATURE: Natacha Butler MD PATIENT NAME: Mariam FrazierDATE: August 19, 2018 : 2:57 PM PAGER/CONTACT #: [phone] [facility] PT EDon 08-19-2018 PT ED HNO ID: [id number] thor: Orly (Rn) Nirali Atkinson: (none)Author Type: Registered NurseType: Patient EducationFiled: 08/19/2018 3:55 PMNote Text:POST OP LEARNING RESPONSEINSTRUCTION PROVIDED TO: Patient and family memberMETHOD OF INSTRUCTION: Written instruction - handoutsVerbal instructionPATIENT / FAMILY RESPONSE: Verbalizes understanding of: [id number]-O orrect actions to take to reduce post procedurecomplicationsFOLLOW -UP PLAN: Complete - No need for follow-upPatient instructed to call with any further issuesSUPPLEMENTAL MATERIAL: NoneREFERRAL (RECOMMENDATION): NoneElectronically Signed By: Orly Atkinson RN In Department: [facility] ENDOSCOPY [facility] PT ED HNO ID: [id number] thor: Pino Simon) Nirali Rasmussen: (none)Author Type: Registered NurseType: Patient EducationFiled: 08/19/2018 1:27 PMNote Text:PRE OP LEARNING ASSESSMENTPROCEDURE/SURGERY: bronchoscopyREADINESS TO LEARNCOGNITIVE ABILITY: Alert and orientedMOTIVATION TO LEARN: InterestedFAMILY SUPPORT: High - Very involved in pt carePATIENT LEARNS BEST BY: Individual InstructionFACTORS AFFECTING LEARNING: NonePHYSICAL LIMITATIONS AFFECTING LEARNING: NoneElectronically Signed By: Pino Rasmussen RN [facility] Respiratory Cult/Stainon Respiratory Cult/Stain Sp. Request/Comment: - Specimen received in sterile container. Smear Result - No organisms seen No Polymorphonuclear Leukocytes Few Epithelial cells Culture Result - Few Normal respiratory mejia present [facility] Comment on above: Performed By: #### R CULST ####[facility], [place] [phone] SURGICAL PATHOLOGYon 018 SURGICAL PATHOLOGY [facility]: [id number] Physician: Natacha Butler M.D. FINAL DIAGNOSISLung, right middle lobe, endobronchial biopsy - Fragments of bronchial wallwith mild chronic inflammation and goblet cell hyperplasia, and alveolatedlung parenchyma with no significant pathologic changes (See comment).SM/rw 08/20/2018 COMMENTThis biopsy consists of one fragment of alveolated lung parenchyma andseveral of bronchial wall. The alveolated lung is unremarkable. Thebronchial wall fragments of show mild chronic inflammation composed oflymphocytes and a few plasma cells. There is only a very rare eosinophil.There is no significant basement membrane thickening. There is considerablegoblet cell hyperplasia. No granulomas or malignant cells are identified.The findings are non-specific.Rao Oneill M.D.(Electronic Signature) SPECIME N SUBMITTEDA: RIGHT MIDDLE LOBE, ENDOBRONCHIAL BIOPSY CLINICAL DATACHRONIC COUGH, LMP: POST MENOPAUSAL.GROSS DESCRIPTIONA. Received in formalin are multiple pieces of britt, soft tissue aggregatingto 1.4 x 0.2 x 0.2 cm. Totally submitted in one cassette.Gross examination performed at [facility], [address] [place] [address] 08/19/2018 9:41:40 PMPatient ID #: [id number] of Report: 08/20/2018Date of Procedure: 08/19/2018Date of Receipt: 08/19/2018Submitted by: Natacha Butler M.D.Location: MEENDDiagnostic interpretation performed at [place] [address]. [facility] Comment on above: Performed By: #### P ATHS ####[facility] [address] [phone] HOSPon 08-12-2018 HOSP Patient:Harish Frazier BMRN: Height:5' 4 (1.626 m)Weight:230 lb (104.327 kg)Outpatient Medications as of 08/19/18:hydroCHLOROthiazide (HYDRODIURIL, ESIDRIX) 25 mg tabletthyroid (CAGE OPERATOR THYROID) 15 mg tabletAdmission/Clinic Administered Medications as of 08/19/18:NaCl 0.9% iv infusionProblem List:High blood pressure [I10]Hypothyroidism [E03.9]Allergies:Steroids [Corticosteroids (Glucocorticoids)]Date Verified: 08/19/18Lab ValuesNo results within the last 30 days for the following basenames: K,HCTProgress Notes ([facility]):Elizabeth Ramirez PA-C 08/07/2018 2:47 PM SignedMIC, 07/19/18IMPRESSION:Baseline spirometry is normal.Negative methacholine challenge test.There is no significant bronchodilator response.Based on above result, asthma is not likely a reason for cough.Recommend proceed with flexible bronchoscopy. Orders placed.[facility] [place] [phone] Corinne Goodman LPN 08/07/2018 3:12 PM SignedPatient notified. Agrees to proceed with bronch.Corinne Goodman LPN [facility] Encounters Encounter Date Encounter Type Care Provider Facility Start: 01-16-2024 End: 01-16-2024 Emergency department patient visit SINDI DELONG DO~[id number] Facility:[facility] Start: 02-13-2023 End: 04-23-2023 ambulatory LENNIE REYES [facility] Start: 02-10-2023 End: 02-10-2023 ambulatory LENNIE REYES [facility] Start: 02-07-2023 End: 02-07-2023 ambulatory INOCENCIO BARNEY [facility] Start: 01-22-2023 End: 01-22-2023 ambulatory LENNIE REYES [facility] Start: 01-22-2023 End: 01-22-2023 Encounter for other preprocedural examination LENNIE REYES [facility] Start: 12-11-2022 End: 12-11-2022 ambulatory EMILY REYES [facility] Start: 12-02-2022 End: 12-02-2022 ambulatory LENNIE REYES [facility] Start: 10-16-2022 End: 11-22-2022 ambulatory LENNIE REYES [facility] Start: 10-14-2022 End: 10-14-2022 ambulatory LENNIE REYES [facility] Start: 10-01-2022 End: 10-01-2022 ambulatory INOCENCIO AVILEZ [facility] Start: 09-18-2022 End: 09-18-2022 ambulatory LENNIE REYES [facility] Start: 09-04-2022 End: 09-04-2022 ambulatory LENNIE REYES [facility] Start: 03-07-2022 Telephone encounter Natacha hermosillo MD Work Phone: Pulmonary Medicine Comment on above: Other (request for r ecords ) Start: 08-19-2018 End: 08-19-2018 Patient encounter [facility] Start: 07-17-2018 Patient encounter [facility] Plan of Treatment Date Care Activity Detail Author Start: 07-25-2022 Influenza vaccination INFLUENZA (Sea son Ended) [facility] Start: 11-24-2021 ADVANCE DIRECTIVE DISCUSSION ADVANCE DIRECTIVE DISCUSSION [facility] Start: 2019 BONE DENSITY BONE DENSITY [facility] Start: 2019 PNEUMOVAX AGE 65 AND OVER WITH 5YR LOOKBACK (#1) PNEUMOVAX AGE 65 AND OVER WITH 5YR LOOKBACK (#1) [facility] Start: 2004 SHINGRIX VACCINE (1 of 2) SHINGRIX V ACCINE (1 of 2) [facility] Start: 1999 COLOGUARD (FIT-DNA) COLOGUARD (FIT-D NA) [facility] Start: 1999 Colonoscopy COLONOSCOPY [facility] Start: 1999 COLORECTAL CANCER SCREENING COLORECTAL CANCER SCREENING [facility] Start: [address] COLONOGRAPHY [facility] Start: 1999 DIABETES SCREEN DIABETES SCREEN [facility] Start: 1999 FECAL OCCULT BLOOD FECAL OCCULT BLOO D [facility] Start: 1999 LIPID SCREEN LIPID SCREEN [facility] Start: 1999 SIGMOIDOSCOPY SIGMOIDOSCOPY Benjiramya antonio [facility] Start: 1994 Mammography MAMMOGRAM [facility] Start: 1973 Urine microalbumin profile DTAP,TDAP ,TD (1 - Tdap) [facility] Start: 1972 HEPATITIS C SCREENING HEPATITIS C SC REENING [facility] Start: [address] [facility] assessment DEPRESSION SCREENING [facility] Start: 1959 COVID-19 VACCINE (1) COVID-19 VACCIN E (1) [facility] Immunizations Immunization Date Immunization Notes Care Provider Doreen jaffe 06-30-2014 pneumococcal conjuga te vaccine, 13 valent Natacha Butler MD Work Phone: [facility] Work Phone: Payers Date Payer Category Payer Unknown [id number] 1955 Unknown [id number] 2.16.84 [id number] 1955 Unknown [id number] 2.16.84 [id number] 1954 Unknown [id number] 2.16.84 [id number] 1954 Unknown [id number] 2.16.84 [id number] 1954 Unknown [id number] 2.16.84 [id number] 1954 Unknown [id number] 2.16.84 [id number] 1954 Unknown [id number] 2.16.84 [id number] 1954 Unknown [id number] 2.16.84 [id number] 1954 Unknown [id number] 2.16.84 [id number] 1954 Unknown [id number] 2.16.84 [id number] 1954 Unknown [id number] 2.16.84 [id number] 1954 Unknown [id number] 2.16.8 [id number] Medicare [id number] Social History Date Type Detail Facility Start: 06-30-2018 Tobacco smoking stat us AKIS Never smoked tobacco [facility] Start: 06-30-2018 Tobacco use and exposure Smoke less tobacco non-user [facility] Start: 06-30-2018 Tobacco Comment Both parents p rovided ETS in home. None of 4 spouses have ever smoked in home. [facility] Start: 1955 Sex Assigned At Not on file [facility] Clinical Note 03-24-2024 Note Date & Type Note Facility 03-24-2024 Note PROCEDURE: KNEE RIGH T WITH OBLIQUES, 03/24/2024 1:21 PM EDT CLINICAL INDICATIONS: Right knee pain COMPARISON: None TECHNIQUE: Right knee with obliques 4 views FINDINGS: Anatomic alignment of the right total knee arthroplasty. Acute osseous pathology is not demonstrated. Mild medial collateral ligament enthesopathy is noted. Patellar enthesopathy is seen. Trace knee effusion considered. Regional soft tissues unremarkable. IMPRESSION: 1. Anatomic alignment of right total knee arthroplasty, no hardware complication . 2. No acute osseous pathology. 3. Patellar enthesopathy. 4. Medial collateral ligament enthesopathy/heterotopic calcification. 5. Trace knee effusion. [facility] Clinical Note 03-24-2024 Note Date & Type Note Facility 03-24-2024 Note PROCEDURE: THORACIC SPINE DORSAL 3 VIEWS, 03/24/2024 8:00 AM EDT CLINICAL INDICATIONS: Thoracic spine fracture COMPARISON: 02/25/2024 TECHNIQUE: Thoracic spine 3 views FINDINGS: Generalized osteopenia of the bony structures is noted. Accentuated thoracic kyphosis is seen. Generalized osteopenia is noted. Anterior superior endplate T7 vertebral fracture, anterior column involvement, 30% loss of height is stable in morphology. Retropulsed fragment is not evident. Anterosuperior endplate T12 vertebral fracture, anterior column involvement 30% loss of height is stable. No retropulsed fragment is evident. Stable morphology. Moderate to severe disc degeneration with mild spondylitic changes seen. Paraspinal abnormality is not evident. IMPRESSION: 1. Generalized osteopenia, accentuated thoracic kyphosis. 2. Stable anterosuperior endplate T7 and T12 vertebral fractures, 30% loss of height, anterior column involvement 3. Moderate to severe disc degeneration, mild spondylosis [facility] Clinical Note 03-24-2024 Note Date & Type Note Facility 03-24-2024 Note PROCEDURE: STERNUM, 03/24/2024 8:00 AM EDT CLINICAL INDICATIONS: Sternal fracture. COMPARISON: CT chest 01/16/2024. TECHNIQUE: Sternum, 2 views. FINDINGS: Stable transverse sternal body fracture is noted. There is stable anterior displacement of the distal fracture fragment. Comminution is present. Incomplete osseous union is noted. Soft tissue swelling is seen. IMPRESSION: 1. Comminuted proximal sternal body fracture, stable anterior displacement distal fragment, incomplete osseous union. 2. Soft tissue swelling. [facility] Clinical Note 02-25-2024 Note Date & Type Note Facility 02-25-2024 Note PROCEDURE: THORACIC SPINE DORSAL 3 VIEWS, 02/25/2024 8:00 AM EDT CLINICAL INDICATIONS: T12 vertebral fracture COMPARISON: CT dorsal spine 01/16/2024 TECHNIQUE: Thoracic spine 2 views FINDINGS: Generalized osteopenia of the bony structures is noted. Accentuated thoracic kyphosis is seen. Generalized osteopenia is noted. Anterior superior endplate T7 vertebral fracture, anterior column involvement, 30% loss of height is stable in morphology. Retropulsed fragment is not evident. Anterosuperior endplate T12 vertebral fracture, anterior column involvement 30% loss of height is stable. No retropulsed fragment is evident. Moderate to severe disc degeneration with mild spondylitic changes seen. Paraspinal abnormality is not evident. IMPRESSION: 1. Generalized osteopenia, accentuated thoracic kyphosis. 2. Stable anterosuperior endplate T7 and T12 vertebral fractures, 30% loss of height, anterior column involvement 3. Moderate to severe disc degeneration, mild spondylosis [facility] Clinical Note 02-25-2024 Note Date & Type Note Facility 02-25-2024 Note PROCEDURE: STERNUM, 02/25/2024 8:00 AM EDT CLINICAL INDICATIONS: Sternal fracture COMPARISON: CT chest 01/16/2024 TECHNIQUE: Sternum, 2 views FINDINGS: The transverse sternal body fracture is again identified. There is 1.4 cm anterior displacement of the distal fracture fragment. Comminution is present. Incomplete osseous union is noted. Soft tissue swelling is seen. IMPRESSION: 1. Comminuted proximal sternal body fracture, 1.4 cm anterior displacement distal fragment, incomplete osseous union 2. Soft tissue swelling [facility] Note 03-07-2022 Telephone Encounter - Aylin Dawson - 03/07/2022 11:18 AM EDT Note Date & Type Note Facility 03-07-2022 Miscellaneous Notes Received form from [facility] requesting Complete Health Record Form was successfully faxed to medical records. documented in this encounter [facility] Summary Purpose Family History No Family History Records FoundNo Family History Records FoundNo Family History Records FoundNo Family History Records FoundNo Family History Records Found Advance Directives No Advanced Directives Records FoundDocuments on File Type Date Recorded Patient Rehab Therapy Manager Expl anation Advance Directive(s) 08/19/2018 1:12 PM Additional Source Comments INFORMATION SOURCE (unrecogn ized section and content) DATE CREATED AUTHOR 09/20/2018 [facility] DATE CREATED AUTHOR AUTHOR'S ORGANIZ ATION 03/08/2022 [facility] DATE CREATED AUTHOR AUTHOR'S ORGANIZ ATION 02/15/2023 [facility] DATE CREATED AUTHOR AUTHOR'S ORGANIZ ATION 05/02/2023 [facility] DATE CREATED AUTHOR AUTHOR'S ORGANIZ ATION 08/14/2024 [facility] Source Comments (unrecognize d section and content) In the event this informatio n is protected by the Federal Confidentiality of Alcohol and Drug Abuse Patient Records regulations: The Federal rules restrict any use of the information to criminally investigate or prosecute any alcohol or drug abuse patient.[facility] Reason for Visit (unrecogniz ed section and content) Reason Comments Other request for records Care Teams (unrecognized sec tion and content) [employer] Relationship Specialty Start Date End Date Darcy Vargas PCP - General SUPERINTENDENT COMMUNICATIONS 07/17/18 FOR RECORDS PERTAINING TO PATIENTS WHO ARE OR HAVE BEEN ENROLLED IN A CHEMICAL DEPENDENCY/SUBSTANCEABUSE PROGRAM, SOME INFORMATION MAY BE OMITTED. This clinical summary was aggregated from multiple sources. Caution should be exercised in using it in the provision of clinical care. This summary normalizes information from multiple sources, and as a consequence, information in this document may materially change the coding, format and clinical context of patient data. In addition, data may be omitted in some cases. CLINICAL DECISIONS SHOULD BE BASED ON THE PRIMARY CLINICAL RECORDS. [facility]. provides no warranty or guarantee of the accuracy or completeness of information in this document.
[2024-09-15 12:22] LABS: Absolute Lymphocyte Count 1.72 X10^3/uL (0.83-4.51); Absolute Neutrophil Count 5.5 X10^3/uL (2.0-7.7); Basophil# 0.04 X10^3/uL; Basophil% 0.5 % (0-1); Eosinophil# 0.23 X10^3/uL; Eosinophils% 2.8 % (0-5); Hematocrit 45.4 % (37-47); Hemoglobin 14.4 g/dL (12.0-15.0); Lymphocyte # 1.72 X10^3/ul (0.83-4.51); Lymphocyte % 20.9 % (19-41); Mean Corp Hgb Conc 31.7 g/dL (32-36); Mean Corpuscular Hgb 28.9 pg (27.0-32.0); Mean Platelet Vol. 10.2 fl (6.2-12.0); Monocyte# 0.72 X10^3/uL; Monocyte% 8.7 % (0-10); NRBC Flagged by Analyzer 0 % (0-5); Neutrophil # 5.47 X10^3/uL (2.7-7.7); Neutrophil % 66.5 % (47-70); Platelet Count 254 K/mm3 (150-450); RBC Distribution Width CV 14.5 % (11.6-14.6); RBC Distribution Width SD 48.2 fl (35.1-43.9); Red Blood Count 4.99 M/mm3 (4.2-5.4); White Blood Count 8.2 K/mm3 (4.4-11.0)
[2024-09-15 12:42] LABS: Vitamin D,25 Hydroxy 36.3 ng/mL
[2024-09-15 12:49] LABS: Hemoglobin A1c 6.1 % (3.8-5.6)
[2024-09-15 13:02] LABS: AST(SGOT) 16 U/L (15-37); Alanine Aminotransfer ALT/SGPT 27 U/L (13-56); Albumin, Serum 3.8 g/dL (3.2-5.0); Alkaline Phosphatase 97 U/L (45-117); Anion Gap 7 (5-15); BUN 14 mg/dL (7-18); BUN/Creat Ratio 17.7 RATIO (10-20); Calcium,Total 9.4 mg/dL (8.5-10.1); Chloride 106 mmol/L (98-107); Cholesterol 206 mg/dL (200); Creatinine, Serum 0.79 mg/dL (0.55-1.02); EST Glomerular Filtration Rate 76 mL/min (>60); Est Glom Filt Rate - Afr Amer 92 mL/min (>60); Globulin 3.8 g/dL (2.2-4.2); Glucose 110 mg/dL (74-106); High Density Lipoprotein 59 mg/dL; Potassium 4.2 mmol/L (3.5-5.1); Protein, Total 7.6 g/dL (6.4-8.2); Sodium Level 138 mmol/L (136-145); T4 Free Direct 0.98 ng/dL (0.76-1.46); Triglycerides 125 mg/dL; Very Low Density Lipoprotein 25 mg/dL (5-40)
== END | disposition home or self-care (01) ==
LOC: MFPLAB 09:59
PROVIDERS: PCP Family Medicine; Visit Provider Family Medicine
DX: E03.9 Hypothyroidism, unspecified (principal); R73.02 Impaired glucose tolerance (oral); E55.9 Vitamin D deficiency, unspecified
CPT/HCPCS: 36415; 80053; 80061; 82306; 83036; 84439; 84443; 85025

== ENCOUNTER → 2024-09-22 | Outpatient (CLI) | payer OTHER, SELFPAY ==
[2024-09-22 15:42] LABS: Vitamin B12 321 pg/mL (211-911)
== END | disposition home or self-care (01) ==
LOC: MFPLAB 13:35
PROVIDERS: PCP Family Medicine; Referring Provider Family Medicine; Visit Provider Family Medicine
DX: R41.3 Other amnesia (principal)
CPT/HCPCS: 36415; 82607

== ENCOUNTER → 2025-02-09 | Outpatient (CLI) | payer OTHER, SELFPAY ==
[2025-02-09 15:12] LABS: Absolute Lymphocyte Count 1.68 X10^3/uL (0.83-4.51); Absolute Neutrophil Count 4.3 X10^3/uL (2.0-7.7); Basophil# 0.04 X10^3/uL; Basophil% 0.6 % (0-1); Eosinophil# 0.14 X10^3/uL; Eosinophils% 2.1 % (0-5); Hematocrit 43.2 % (37-47); Hemoglobin 13.8 g/dL (12.0-15.0); Lymphocyte # 1.68 X10^3/ul (0.83-4.51); Lymphocyte % 24.7 % (19-41); Mean Corp Hgb Conc 31.9 g/dL (32-36); Mean Corpuscular Hgb 28.8 pg (27.0-32.0); Mean Corpuscular Volume 90.2 fL (81-99); Mean Platelet Vol. 9.9 fl (6.2-12.0); Monocyte# 0.61 X10^3/uL; NRBC Flagged by Analyzer 0 % (0-5); Neutrophil # 4.29 X10^3/uL (2.7-7.7); Neutrophil % 63.2 % (47-70); Platelet Count 261 K/mm3 (150-450); RBC Distribution Width CV 14.6 % (11.6-14.6); RBC Distribution Width SD 48.5 fl (35.1-43.9); Red Blood Count 4.79 M/mm3 (4.2-5.4); White Blood Count 6.8 K/mm3 (4.4-11.0)
[2025-02-09 15:17] LABS: Color, Urine Yellow (Yellow); Glucose, Dipstick Normal (Normal); Ketone-Dipstick Negative (Negative); Leukocyte Esterase-Dipstick Negative /ul (Negative); Nitrite-Dipstick Negative (Negative); Occult Blood-Urine Negative /ul (Negative); Protein-Dipstick Negative (Negative); Urine Bilirubin Dipstick Negative (Negative); Urine Clarity Clear (Clear); Urine Urobilinogen Normal (Normal)
[2025-02-09 15:28] LABS: Bacteria 1+ /hpf (None Seen); Squamous Epithelial Cells - UA 0-5 SEEN /hpf (5-10)
[2025-02-09 15:29] LABS: Mucous, Urine RARE /hpf (<or=2+); Red Blood Cells-Urine 0 SEEN /hpf (0-5); White Blood Cells 0-5 SEEN /hpf (0-5)
[2025-02-09 18:25] LABS: ALB/GLOB Ratio 1.4 RATIO (0.9-2.4); AST(SGOT) 22 U/L (<=31); Alanine Aminotransfer ALT/SGPT 17 U/L (<=34); Albumin, Serum 4.3 g/dL (3.4-4.8); Alkaline Phosphatase 92 U/L (35-104); Anion Gap 14 (5-15); BUN 13 mg/dL (4-19); BUN/Creat Ratio 14.8 RATIO (10-20); Calcium,Total 9.7 mg/dL (7.6-11.0); Carbon Dioxide 22.7 mmol/L (21.0-32.0); Chloride 101 mmol/L (98-108); Cholesterol 218 mg/dL (<=200); Creatinine, Serum 0.86 mg/dL (0.70-1.20); EST Glomerular Filtration Rate 73 (>60); Globulin 3.1 g/dL (2.2-4.2); Glucose 116 mg/dL (70-99); High Density Lipoprotein 66 mg/dL; Low Density Lipoprotein Calc. 138 mg/dL; Magnesium 2.2 mg/dL (1.5-2.2); Protein, Total 7.4 g/dL (5.9-8.4); Sodium Level 138 mmol/L (133-145); Total Bilirubin 0.48 mg/dL (0.00-1.30); Triglycerides 74 mg/dL; Very Low Density Lipoprotein 15 mg/dL (5-40); cholesterol:hdl ratio screen 3.32
[2025-02-09 18:40] LABS: Vitamin D,25 Hydroxy 36.8 ng/mL (30-100)
[2025-02-09 23:12] LABS: Hemoglobin A1c 6.2 % (<=5.6)
== END | disposition home or self-care (01) ==
LOC: MFPLAB 11:04
PROVIDERS: PCP Family Medicine; Referring Provider Family Medicine; Visit Provider Family Medicine
DX: E03.9 Hypothyroidism, unspecified (principal); I10 Essential (primary) hypertension; R73.02 Impaired glucose tolerance (oral)
CPT/HCPCS: 36415; 80053; 80061; 81001; 82306; 83036; 83735; 84439; 84443; 85025

== ENCOUNTER → 2025-08-05 | Outpatient (CLI) | payer OTHER, SELFPAY ==
[2025-08-05 14:13] LABS: Mucous, Urine 0 SEEN /hpf (<or=2+)
[2025-08-05 15:59] LABS: Color, Urine Yellow (Yellow); Glucose, Dipstick Normal (Normal); Ketone-Dipstick Negative (Negative); Leukocyte Esterase-Dipstick Negative /ul (Negative); Nitrite-Dipstick Negative (Negative); Occult Blood-Urine Negative /ul (Negative); Protein-Dipstick Negative (Negative); Specific Gravity, Urine 1.015 (1.002-1.030); Urine Bilirubin Dipstick Negative (Negative)
[2025-08-05 17:54] LABS: Hematocrit 43.9 % (37-47); Hemoglobin 14.0 g/dL (12.0-15.0); Immature Granulocytes Count 0.040 X10^3/uL (0.0-0.0); Mean Corp Hgb Conc 31.9 g/dL (32-36); Mean Corpuscular Volume 90.5 fL (81-99); Mean Platelet Vol. 10.0 fl (6.2-12.0); NRBC Flagged by Analyzer 0 % (0-5); Platelet Count 256 K/mm3 (150-450); RBC Distribution Width CV 14.2 % (11.6-14.6); RBC Distribution Width SD 47.3 fl (35.1-43.9); Red Blood Count 4.85 M/mm3 (4.2-5.4); White Blood Count 8.9 K/mm3 (4.4-11.0)
[2025-08-05 18:33] LABS: Red Blood Cells-Urine 0-5 SEEN /hpf (0-5); Squamous Epithelial Cells - UA 0-5 SEEN /hpf (5-10)
[2025-08-05 18:37] LABS: AST(SGOT) 25 U/L (<=31); Alanine Aminotransfer ALT/SGPT 23 U/L (<=34); Albumin, Serum 4.4 g/dL (3.4-4.8); Alkaline Phosphatase 98 U/L (35-104); Anion Gap 13 (5-15); BUN 13 mg/dL (4-19); BUN/Creat Ratio 17.1 RATIO (10-20); Calcium,Total 9.8 mg/dL (7.6-11.0); Carbon Dioxide 23.4 mmol/L (21.0-32.0); Chloride 102 mmol/L (98-108); Cholesterol 198 mg/dL (<=200); Globulin 3.2 g/dL (2.2-4.2); Glucose 126 mg/dL (70-99); Low Density Lipoprotein Calc. 124 mg/dL; Magnesium 2.5 mg/dL (1.5-2.2); Potassium 4.0 mmol/L (3.3-5.1); Triglycerides 77 mg/dL; Very Low Density Lipoprotein 15 mg/dL (5-40); cholesterol:hdl ratio screen 3.40
== END | disposition home or self-care (01) ==
LOC: MTLAB 14:11
PROVIDERS: PCP Family Medicine; Referring Provider Family Medicine; Visit Provider Family Medicine
DX: R73.02 Impaired glucose tolerance (oral) (principal); I10 Essential (primary) hypertension; E03.9 Hypothyroidism, unspecified
CPT/HCPCS: 80053; 80061; 81001; 83036; 83735; 84439; 84443; 85025